=== PATIENT | male | born 1945 | race African-American/Black ===

== ENCOUNTER 2022-11-02 08:09 | Outpatient (REF) | payer MEDICAID, SELFPAY ==
[2022-11-02 11:16] LABS: MANUAL DIFF FLAG NO
[2022-11-02 11:40] LABS: Basophils Percent Auto 0.5 % (0-2); Eosinophils Absolute Auto 0.2 X10*3/uL (0.0-0.4); Hematocrit 40.1 % (42.0-52.0); Hemoglobin 12.9 g/dl (14.0-18.0); Imm Gran Abs Auto 0.02 X10*3/uL (0.00-0.03); Imm Gran Pct Auto 0.4 % (0.0-0.4); Lymphocytes Absolute Auto 2.2 X10*3/uL (1.2-4.9); Lymphocytes Percent Auto 39.6 % (20-40); Mean Corpuscular HGB Conc 32.2 g/dl (31.0-36.0); Mean Corpuscular Hemoglobin 30.2 pg (27.0-33.0); Mean Corpuscular Volume 93.9 fL (80.0-98.0); Mean Platelet Volume 12.1 fL (9.4-12.4); Monocytes Absolute Auto 0.5 X10*3/uL (0.1-1.2); Neutrophils Absolute Auto 2.7 x10*3/uL (2.0-8.3); Neutrophils Percent Auto 48.5 % (45-73); Platelet Count 223 X10*3/uL (160-400); Red Blood Count 4.27 X10*6/uL (4.60-5.80); Red Cell Distribution Width 12.3 % (11.0-16.0); White Blood Count 5.6 X10*3/uL (4.8-10.8)
[2022-11-02 12:17] LABS: Alanine Aminotransferase 9 U/L (0-40); Alkaline Phosphatase 83 U/L (39-117); Anion Gap 11 (12-20); Aspartate Amino Transferase 17 U/L (5-37); Bilirubin Total 0.7 mg/dL (0.0-1.0); Blood Urea Nitrogen 13 mg/dL (9-16); Calcium 9.3 mg/dL (8.4-10.2); Carbon Dioxide 28 mmol/L (22-29); Chloride 103 mmol/L (96-108); Cholesterol 167 mg/dL; Estimated Glomerular Filt Rate > 60; Glucose Fasting 103 mg/dL (60-99); HDL Cholesterol 44 mg/dL; LDL Cholesterol Calculated 111 mg/dl; Potassium 3.6 mmol/L (3.3-5.1); Sodium 138 mmol/L (135-145); Total Protein 7.8 g/dL (6.5-8.0); Triglycerides 62 mg/dL
[2022-11-02 12:33] LABS: TSH reflex Free T4 4.63 uIU/mL (0.32-4.0)
[2022-11-02 14:18] LABS: Free T4 (Free Thyroxine) 1.02 ng/dL (0.71-1.85)
[2022-11-09 18:23] LABS: PSA, Ultra Sensitive 0.62 ng/mL
== END 2022-11-02 08:10 | disposition home or self-care (01) ==
LOC: HO.WFDLDS 08:09
PROVIDERS: Visit Provider Nurse Practitioner Family
DX: Z00.00 Encounter for general adult medical examination without abnormal findings (principal); I10 Essential (primary) hypertension
CPT/HCPCS: 36415; 80053; 80061; 84153; 84439; 84443; 85025

== ENCOUNTER 2022-11-18 08:12 | Outpatient (REF) | payer MEDICAID, SELFPAY ==
[2022-11-18 11:36] LABS: Immature Retic Fraction 6.5 % (2.3-13.4); Retic HGB Equivalent 35.6 pg (30.0-35.0); Reticulocyte Percent 1.4 % (0.5-1.8); Reticulocytes Absolute 0.058 X10*6/uL (0.026-0.095)
[2022-11-18 12:26] LABS: Glucose Fasting 93 mg/dL (60-99); Iron 100 mcg/dL (45-160); Percent Iron Saturation 36 % (15-50); Total Iron Binding Capacity 279 mcg/dL (228-428); Unsaturated Iron Binding 179 ug/dL
[2022-11-18 12:45] LABS: Ferritin 22 ng/mL (20-250)
[2022-11-18 12:58] LABS: Vitamin B12 263 pg/mL (200-900)
[2022-11-18 14:25] LABS: Free T4 (Free Thyroxine) 0.92 ng/dL (0.71-1.85)
[2022-11-18 14:26] LABS: Appearance Urine Cloudy; Color Urine Yellow; Glucose Urine UA Negative (Negative); Leukocyte Esterase Urine Negative (Negative); Nitrite Urine Negative (Negative); PH 5.5 (5.0-9.0); Specific Gravity - Urine 1.015 (1.005-1.025); Urine Blood Negative (Negative); Urine Ketones Negative (Negative); Urine Protein Negative (Neg-Trace)
[2022-11-20 12:34] LABS: Triiodothyronine T3 Free 3.5 pg/mL (2.3-4.2)
== END 2022-11-18 08:13 | disposition home or self-care (01) ==
LOC: HO.WFDLDS 08:12
PROVIDERS: Visit Provider Nurse Practitioner Family
DX: Z00.00 Encounter for general adult medical examination without abnormal findings (principal); R73.01 Impaired fasting glucose; D64.9 Anemia, unspecified
CPT/HCPCS: 36415; 81003; 82607; 82728; 82746; 82947; 83540; 84439; 84443; 84481; 85045

== ENCOUNTER 2022-12-02 10:32 | Outpatient (AMB) | payer MEDICAID, SELFPAY ==
--- NOTE | 2022-12-02 10:41 | A.OFFPC_ITS ---
Vital Signs 12/02/22 10:42 12/02/22 11:31 Height 5 ft 7 in Weight 165 lb BMI 25.8 BP 152/64 H 160/60 H Blood Pressure Location Lt brachial Rt brachial Position Sitting Sitting Respiration 12 Pulse 106 H Pulse Source Pulse Oximeter Temp 98.1 F Temp Source Temporal Artery Scan Pulse Oximetry (%) 98 Oxygen Delivery Method Room Air Intake Visit Reasons: f/u HTN Intake Note: Patient would like to get like a ASSOCIATE PROFESSOR OF BIOLOGY to help with daily activities at home. Remotely Operated Vehicle Required: Yes Remotely Operated Vehicle Name: Herman (Son) Accompanied by: Son Allergies No Known Allergies Allergy (Verified 12/02/22 11:10) Medication List - Last Reconciled 12/02/22 by Mark Rodriguez CNP amlodipine 10 mg PO DAILY 30 days lisinopril 40 mg PO DAILY 30 days Tobacco use date assessed: 10/21/22 Fall risk assessment: No Falls in past year Last assessed Fall Risk: 12/02/22 Dental Screening Dental Screen Date: 12/02/22 Did you have a dental visit in the last 12 months?: No Did you have a dental problem in the last 6 months where you did not have access to dental care?: No Was dental information given to patient?: Yes HPI HPI Comments History of Present Illness Details 76-year-old Creole speaking male, accompanied by his son, presents for hypertension follow-up. He had the nurse visit follow-up last week; his blood pressure is elevated, amlodipine was increased to 10 mg daily. He notes that he has been taking amlodipine an lisinopril as prescribed. He states that he monitors his blood pressure daily with readings in the 150s/80s-90s. No headache, dizziness, visual disturbances, or chest pain. Interpretation by the patient's son per patient's preference. [facility] Medical History High blood pressure No pertinent family history Prostate troubles Surgical History History of hernia repair Social History Housing: House Patient Tobacco Use Status: Never used Tobacco e-Cigarette/Vaping Use: Never Used service: No Current occupational status: retired Cognitive needs: No Hearing needs: No Vision needs: No Questionnaire Thrive Questionnaire Date Thrive assessed: 12/02/22 I am a: Patient What is your living situation today?: I have a steady place to live Within the past 12 months, did the food you bought not last and you didn't have the money to get more?: Never true Within the past 12 months, did you worry whether your food would run out before you got money to buy more?: Never true Do you have trouble paying for medicines?: No Do you have trouble getting transportation to medical appointments?: No Do you have trouble paying your heating and electricity bill?: No Do you have trouble taking care of your child, family member or friend?: No Do you have trouble with day-to-day activities such as bathing, preparing meals, shopping, managing finances, etc.?: Yes Are you currently unemployed and looking for a job?: No Are you interested in more education?: No Please select the resources that you would like help with: Daily support Currently or been in a relationship where the following occur: no concerns reported LUKASZ-7 AMB Questionnaire LUKASZ-7 Date LUKASZ - 7 assessed: 10/21/22 Source: Developed by Drs. Alex Fung, Luma Gan, Gideon Rolon and colleagues, with an educational elder from [employer]. Review of Systems Const Details: Const Denies chills, Denies fatigue, Denies fever(s), Denies headache(s) and Denies weakness ENT Denies dizziness and Denies headache(s) Card Denies chest pain, Denies lightheadedness, Denies dyspnea and Denies other (Palpitations) Resp Denies cough, Denies dyspnea, Denies wheezing and Denies other ( shortness of breath) GI Denies abdominal pain, Denies melena, Denies hematochezia, Denies change in bowel habits, Denies dyspepsia and Denies nausea Denies hematuria and Denies dysuria Musc Denies abnormal gait, Denies myalgias, Denies arthralgias, Denies numbness and Denies tingling Skin/Breast Denies rash, Denies unusual bruising and Denies wounds Neuro Denies abnormal gait, Denies dizziness, Denies headache(s), Denies memory loss, Denies numbness, Denies Sensory deficit (Neuro), Denies tingling and Denies weakness Psych Denies anxiety and Denies depression Endo Denies fatigue Aller/Immun Denies wheezing Physical exam (Primary Care) Vital Signs: Last Vital Signs Temp 98.1 F 12/02/22 10:42 Pulse 106 H 12/02/22 10:42 Resp 12 12/02/22 10:42 BP 152/64 H 12/02/22 10:42 Pulse Ox 98 12/02/22 10:42 Oxygen Delivery Method Room Air 12/02/22 10:42 BMI result Body Mass Index 25.8 Tobacco/Smoking Status: Tobacco use Status Tobacco use date assessed 10/21/22 12/02/22 10:52 Patient Tobacco Use Status Never used Tobacco 12/02/22 10:52 e-Cigarette/Vaping Use Never Used 12/02/22 10:52 Thrive Assessment: Date of Thrive Assessment Date Thrive assessed 12/02/22 12/02/22 10:52 Currently or been in a relationship where the following occur: no concerns reported Const Other: General: no acute distress and well developed Nutritional Appearance: well nourished rientation/consciousness: patient oriented x3 HENMT Head: Yes normocephalic and Yes atraumatic Eyes General: appearance normal, both eyes and all related structures Pupils: Equal, round and reactive pupils present EOM: EOMs intact bilaterally Resp Effort & Inspection: normal respiratory effort Auscultation: clear to auscultation bilaterally Cardio Rate: regular rate Rhythm: regular rhythm Heart sounds: S1 normal heart sound present, S2 normal heart sound present, no gallops, no murmurs and no rubs GI Palpation (GI): No Abdominal aortic bruit present, Soft to palpation, nontender, No hepatosplenomegaly present and No Rebound tenderness present Auscultation: normal bowel sounds General: Yes no CVA tenderness Back/Spine/Pelvis Back: no CVA tenderness Cervical Spine: cervical ROM normal and No Cervical spine tenderness Thoracic/Lumbar Spine: thoraco-lumbar ROM normal, No pain with thoraco-lumbar ROM, No thoracic spinal tenderness and No lumbar spinal tenderness Extrem General: Yes normal to inspection, No edema and No calf tenderness Skin General: warm and dry. Normal skin color. Normal skin turgor Lesions: no lesions Rashes: no rashes Trauma: no lacerations or abrasions Wounds: no wounds Nails: normal Neuro General: patient oriented x3, gait normal and no focal neuro deficit Cranial nerves: Yes Equal, round and reactive pupils present Cognition (Neuro): normal cognition Gait exam (Neuro): Normal gait present Sensory Exam: No Sensory deficit (Neuro) Psych Affect: normal affect Assessment and Plan Assessment & Plan (1) High blood pressure: Code(s): I10 - Essential (primary) hypertension Plan: Resting BP is elevated, 160/60, above goal of less than 140/90 Will add metoprolol to his treatment regimen. Take as prescribed Continue to take amlodipine and lisinopril as prescribed Low-sodium diet encouraged Referred to Cardiology Follow-up for a nurse visit in 1 week for blood pressure check Return in 2 weeks or sooner with symptoms or concerns Verbalized understanding and agreed with treatment plan. Orders: Referrals Cardiology Referral I10 - Essential (primary) hypertension Medications: New metoprolol tartrate 50 mg PO DAILY 30 tabs 3RF 30 days Coding Level of Care Code Est Pt Level 3 (12092) Diagnoses High blood pressure I10 Time Spent (min) 25
[2022-12-02 10:42] VITALS: BP 152/64; PULSE 106; RESP 12; TEMP 36.7; O2SAT 98; BMI 25.8
[2022-12-02 11:31] VITALS: BP 160/60
== END 2022-12-02 11:36 | disposition home or self-care (01) ==
PROVIDERS: PCP Nurse Practitioner Family; Visit Provider Nurse Practitioner Family
DX: I10 Essential (primary) hypertension (principal)
CPT/HCPCS: 99213

== ENCOUNTER 2023-01-06 11:34 | Outpatient (AMB) | payer MEDICAID, SELFPAY ==
[2023-01-06 11:43] VITALS: BP 160/70; PULSE 78; RESP 12; TEMP 36.5; O2SAT 98; BMI 25.8
--- NOTE | 2023-01-06 11:43 | A.OFFPC_ITS ---
Vital Signs 01/06/23 11:43 01/06/23 12:12 Height 5 ft 7 in Weight 165 lb BMI 25.8 BP 160/70 H 152/70 H Blood Pressure Location Lt brachial Rt brachial Position Sitting Sitting Respiration 12 Pulse 78 Pulse Source Pulse Oximeter Temp 97.7 F Temp Source Temporal Artery Scan Pulse Oximetry (%) 98 Oxygen Delivery Method Room Air Intake Visit Reasons: BP Check Insulation Board Calender Operator Required: Yes Insulation Board Calender Operator Name: Patient's son is with him Accompanied by: Son Allergies No Known Allergies Allergy (Verified 01/06/23 12:06) Medication List - Last Reconciled 01/06/23 by Mark Rodriguez CNP amlodipine 10 mg PO DAILY 30 days lisinopril 40 mg PO DAILY 30 days metoprolol tartrate 50 mg PO BID 30 days Tobacco use date assessed: 10/21/22 Fall risk assessment: No Falls in past year Last assessed Fall Risk: 01/06/23 Dental Screening Dental Screen Date: 01/06/23 Did you have a dental visit in the last 12 months?: No Did you have a dental problem in the last 6 months where you did not have access to dental care?: No Was dental information given to patient?: Yes HPI HPI Comments History of Present Illness Details 76-year-old Creole speaking male, accompanied by his son, presents for hypertension follow-up. He had the nurse visit follow-up last week; his blood pressure was elevated but improved to 150/62, metoprolol was was added to his treatment regimen. He notes that he has been taking amlodipine, lisinopril, and Metoprolol as prescribed.? He states that he monitors his blood pressure daily before taking his medications. His blood pressure average between 120s-140/60s-70s. He notes that his home BP this morning was 160/80. No headache, dizziness, visual disturbances, or chest pain. He states he has cardiology appointment scheduled next month. Interpretation by the patient's son per patient's preference.? [facility] Medical History High blood pressure No pertinent family history Prostate troubles Surgical History History of hernia repair Social History Housing: House Patient Tobacco Use Status: Never used Tobacco e-Cigarette/Vaping Use: Never Used service: No Current occupational status: retired Cognitive needs: No Hearing needs: No Vision needs: No Questionnaire Thrive Questionnaire Date Thrive assessed: 12/02/22 LUKASZ-7 AMB Questionnaire LUKASZ-7 Date LUKASZ - 7 assessed: 10/21/22 Source: Developed by Drs. Alex Fugn, Luma Gan, Gideon Rolon and colleagues, with an educational elder from [employer]. Review of Systems Const Details: Const Denies chills, Denies fatigue, Denies fever(s), Denies headache(s) and Denies weakness ENT Denies dizziness and Denies headache(s) Card Denies chest pain, Denies lightheadedness, Denies dyspnea and Denies other (Palpitations) Resp Denies cough, Denies dyspnea, Denies wheezing and Denies other ( shortness of breath) GI Denies abdominal pain, Denies melena, Denies hematochezia, Denies change in bowel habits, Denies dyspepsia and Denies nausea Denies hematuria and Denies dysuria Musc Denies abnormal gait, Denies myalgias, Denies arthralgias, Denies numbness and Denies tingling Skin/Breast Denies rash, Denies unusual bruising and Denies wounds Neuro Denies abnormal gait, Denies dizziness, Denies headache(s), Denies memory loss, Denies numbness, Denies Sensory deficit (Neuro), Denies tingling and Denies weakness Psych Denies anxiety, Denies depression, Denies memory loss Endo Denies cold intolerance, Denies fatigue, Denies heat intolerance, Denies polydipsia and Denies polyuria Aller/Immun Denies wheezing Physical exam (Primary Care) Vital Signs: Last Vital Signs Temp 97.7 F 01/06/23 11:43 Pulse 78 01/06/23 11:43 Resp 12 01/06/23 11:43 BP 160/70 H 01/06/23 11:43 Pulse Ox 98 01/06/23 11:43 Oxygen Delivery Method Room Air 01/06/23 11:43 BMI result Body Mass Index 25.8 Tobacco/Smoking Status: Tobacco use Status Tobacco use date assessed 10/21/22 01/06/23 11:44 Patient Tobacco Use Status Never used Tobacco 01/06/23 11:44 e-Cigarette/Vaping Use Never Used 01/06/23 11:44 Thrive Assessment: Date of Thrive Assessment Date Thrive assessed 12/02/22 01/06/23 11:44 Const Other: General: no acute distress and well developed Nutritional Appearance: well nourished Orientation/consciousness: patient oriented x3 HENMT Head: Yes normocephalic and Yes atraumatic Eyes General: appearance normal, both eyes and all related structures Pupils: Equal, round and reactive pupils present EOM: EOMs intact bilaterally Resp Effort & Inspection: normal respiratory effort Auscultation: clear to auscultation bilaterally Cardio Rate: regular rate Rhythm: regular rhythm Heart sounds: S1 normal heart sound present, S2 normal heart sound present, no gallops, no murmurs and no rubs GI Palpation (GI): No Abdominal aortic bruit present, Soft to palpation, nontender, No hepatosplenomegaly present and No Rebound tenderness present Auscultation: normal bowel sounds General: Yes no CVA tenderness Back/Spine/Pelvis Back: no CVA tenderness Cervical Spine: cervical ROM normal and No Cervical spine tenderness Thoracic/Lumbar Spine: thoraco-lumbar ROM normal, No pain with thoraco-lumbar R OM, No thoracic spinal tenderness and No lumbar spinal tenderness Extrem General: Yes normal to inspection, No edema and No calf tenderness Skin General: warm and dry. Normal skin color. Normal skin turgor Lesions: no lesions Rashes: no rashes Trauma: no lacerations or abrasions Wounds: no wounds Nails: normal Neuro General: patient oriented x3, gait normal and no focal neuro deficit Cranial nerves: Yes Equal, round and reactive pupils present Cognition (Neuro): normal cognition Gait exam (Neuro): Normal gait present Sensory Exam: No Sensory deficit (Neuro) Psych Appearance: grossly normal Affect: normal affect Attitude: cooperative Thought process: Normal thought process present Assessment and Plan Assessment & Plan (1) High blood pressure: Code(s): I10 - Essential (primary) hypertension Plan: Resting blood pressure is 152/70, Above goal of above goal of less than 140/90 Metoprolol increased to 100 mg twice daily. Take as prescribed Continue to take amlodipine and lisinopril as prescribed Low sodium diet encouraged Continue to monitor BP daily and report BP below 100/60 and HR below 60 with or without dizziness/lightheadedness Return for a nurse visit for BP check in 1 week Follow up with PCP in 1 month Follow up with cardiology as planned Return sooner with symptoms or concerns Verbalized understanding and agreed with the treatment plan. Medications: New metoprolol tartrate 100 mg PO BID 30 days 60 tabs 3RF Discontinued metoprolol tartrate Discontinued Reason: Doctor's Order 50 mg PO BID 30 days 60 tabs 3RF Coding Level of Care Code Est Pt Level 3 (91675) Diagnoses High blood pressure I10
[2023-01-06 12:12] VITALS: BP 152/70
== END 2023-01-06 12:21 | disposition home or self-care (01) ==
PROVIDERS: PCP Nurse Practitioner Family; Visit Provider Nurse Practitioner Family
DX: I10 Essential (primary) hypertension (principal)
CPT/HCPCS: 99213

== ENCOUNTER 2023-01-13 10:29 | Outpatient (REF) | payer MEDICAID, SELFPAY ==
[2023-01-20 16:28] LABS: Aldosterone/Renin Ratio 85.7 Ratio (0.9-28.9); Plasma Renin Activity 0.07 ng/mL/h (0.25-5.82)
== END 2023-01-13 10:30 | disposition home or self-care (01) ==
LOC: HO.WFDLDS 10:29
PROVIDERS: Visit Provider Nurse Practitioner Family
DX: I10 Essential (primary) hypertension (principal)
CPT/HCPCS: 36415; 82088

== ENCOUNTER 2023-01-27 15:09 | Outpatient (REF) | payer MEDICAID, SELFPAY ==
[2023-01-28 12:26] LABS: Appearance Urine Clear; Color Urine Yellow; Glucose Urine UA Negative (Negative); Leukocyte Esterase Urine Negative (Negative); Nitrite Urine Negative (Negative); PH 6.5 (5.0-9.0); Specific Gravity - Urine 1.015 (1.005-1.025); Urine Blood Negative (Negative); Urine Ketones Negative (Negative); Urine Protein Negative (Neg-Trace)
[2023-01-28 13:05] LABS: Creatinine Urine 125.41 mg/dL; Microalbum/Creatinine Ratio Ur 3.9 ug/mg cr (<30)
== END 2023-01-27 15:10 | disposition home or self-care (01) ==
LOC: HO.LAB 15:09
PROVIDERS: Visit Provider Nurse Practitioner Family
DX: I10 Essential (primary) hypertension (principal)
CPT/HCPCS: 81003; 82043; 82570

== ENCOUNTER 2023-02-03 11:24 | Outpatient (AMB) | payer MEDICAID, SELFPAY ==
--- NOTE | 2023-02-03 11:28 | A.OFFPC_ITS ---
Vital Signs 02/03/23 11:29 02/03/23 12:08 Height 5 ft 7 in Weight 165 lb 6 oz BMI 25.9 BP 160/74 H 140/60 H Blood Pressure Location Rt brachial Rt brachial Position Sitting Sitting Respiration 12 Pulse 72 Pulse Source Pulse Oximeter Temp 97.1 F Temp Source Temporal Artery Scan Pulse Oximetry (%) 99 Oxygen Delivery Method Room Air Intake Visit Reasons: 1 mos f/u HTN Facility Examiner Required: Yes Facility Examiner Name: His Son Accompanied by: Son Allergies No Known Allergies Allergy (Verified 02/03/23 11:41) Medication List - Last Reconciled 02/03/23 by Mark Rodriguez CNP amlodipine 10 mg PO DAILY 30 days lisinopril 40 mg PO DAILY 30 days metoprolol tartrate 100 mg PO BID 30 days Tobacco use date assessed: 10/21/22 Fall risk assessment: No Falls in past year Last assessed Fall Risk: 02/03/23 Dental Screening Dental Screen Date: 02/03/23 Did you have a dental visit in the last 12 months?: No Did you have a dental problem in the last 6 months where you did not have access to dental care?: No Was dental information given to patient?: Yes HPI HPI Comments History of Present Illness Details 77-year-old Creole speaking male, accomp anied by his son, presents for hypertension follow-up He notes that he has been taking amlodipine, lisinopril, and Metoprolol as prescribed His son states that his home blood pressure readings are usually in the 140s/60s He states he has cardiology appointment and renal ultrasound scheduled for early next month No acute symptoms at this time. [facility] Medical History No pertinent family history Prostate troubles High blood pressure Surgical History History of hernia repair Social History Housing: House Patient Tobacco Use Status: Never used Tobacco e-Cigarette/Vaping Use: Never Used service: No Current occupational status: retired Cognitive needs: No Hearing needs: No Vision needs: No Questionnaire Thrive Questionnaire Date Thrive assessed: 12/02/22 LUKASZ-7 AMB Questionnaire LUKASZ-7 Date LUKASZ - 7 assessed: 10/21/22 Source: Developed by Drs. Alex Fung, Luma Gan, Gideon Rolon and colleagues, with an educational elder from [employer]. Review of Systems Const Details: Const Denies chills, Denies fatigue, Denies fever(s), Denies headache(s) and Denies weakness ENT Denies dizziness and Denies headache(s) Card Denies chest pain, Denies lightheadedness, Denies dyspnea and Denies other (Palpitations) Resp Denies cough, Denies dyspnea, Denies wheezing and Denies other ( shortness of breath) GI Denies abdominal pain, Denies melena, Denies hematochezia, Denies change in bowel habits, Denies dyspepsia and Denies nausea Denies hematuria and Denies dysuria Musc Denies abnormal gait, Denies myalgias, Denies arthralgias, Denies numbness and Denies tingling Skin/Breast Denies rash, Denies unusual bruising and Denies wounds Neuro Denies abnormal gait, Denies dizziness, Denies headache(s), Denies memory loss, Denies numbness, Denies Sensory deficit (Neuro), Denies tingling and Denies weakness Psych Denies anxiety, Denies depression, Denies memory loss Endo Denies cold intolerance, Denies fatigue, Denies heat intolerance, Denies polydipsia and Denies polyuria Aller/Immun Denies wheezing Physical exam (Primary Care) Vital Signs: Last Vital Signs Temp 97.1 F 02/03/23 11:29 Pulse 72 02/03/23 11:29 Resp 12 02/03/23 11:29 BP 160/74 H 02/03/23 11:29 Pulse Ox 99 02/03/23 11:29 Oxygen Delivery Method Room Air 02/03/23 11:29 BMI result Body Mass Index 25.9 Tobacco/Smoking Status: Tobacco use Status Tobacco use date assessed 10/21/22 02/03/23 11:33 Patient Tobacco Use Status Never used Tobacco 02/03/23 11:33 e-Cigarette/Vaping Use Never Used 02/03/23 11:33 Thrive Assessment: Date of Thrive Assessment Date Thrive assessed 12/02/22 02/03/23 11:33 Const Other: General: no acute distress and well developed Nutritional Appearance: well nourished Orientation/consciousness: patient oriented x3 [facility] Head: Yes normocephalic and Yes atraumatic Eyes General: appearance normal, both eyes and all related structures Pupils: Equal, round and reactive pupils present EOM: EOMs intact bilaterally Resp Effort & Inspection: normal respiratory effort Auscultation: clear to auscultation bilaterally Cardio Rate: regular rate Rhythm: regular rhythm Heart sounds: S1 normal heart sound present, S2 normal heart sound present, no gallops, no murmurs and no rubs GI Palpation (GI): No Abdominal aortic bruit present, Soft to palpation, nontender, No hepatosplenomegaly present and No Rebound tenderness present Auscultation: normal bowel sounds General: Yes no CVA tenderness Back/Spine/Pelvis Back: no CVA tenderness Cervical Spine: cervical ROM normal and No Cervical spine tenderness Thoracic/Lumbar Spine: thoraco-lumbar ROM normal, No pain with thoraco-lumbar ROM, No thoracic spinal tenderness and No lumbar spinal tenderness Extrem General: Yes normal to inspection, No edema and No calf tenderness Skin General: warm and dry. Normal skin color. Normal skin turgor Lesions: no lesions Rashes: no rashes Trauma: no lacerations or abrasions Wounds: no wounds Nails: normal Neuro General: patient oriented x3, gait normal and no focal neuro deficit Cranial nerves: Yes Equal, round and reactive pupils present Cognition (Neuro): normal cognition Gait exam (Neuro): Normal gait present Sensory Exam: No Sensory deficit (Neuro) Psych Appearance: grossly normal Affect: normal affect Attitude: cooperative Thought process: Normal thought process present Assessment and Plan Assessment & Plan (1) High blood pressure: Code(s): I10 - Essential (primary) hypertension Qualifiers: Hypertension type: primary hypertension Qualified Code(s): I10 - Essential (primary) hypertension Plan: His initial blood pressure is 160/74. His resting blood pressure is 140/60, slightly above goal of less than 140/80 Recent renin level is significantly low, 0.7 and aldosterone/renin ratio is significantly elevated, 85.79; this indicates primary aldosteronism and likely why his blood pressure is uncontrolled with current treatment regimen. Lisinopril discontinued Lisinopril-hydrochlorothiazide ordered; advised to take with metoprolol and amlodipine as prescribed Low-sodium diet encouraged Referred to Nephrology Encouraged to follow-up for renal ultrasound as scheduled Follow-up with cardiology as planned Return in 1 week for a nurse visit for blood pressure check Follow-up in 2 weeks or return sooner with symptoms or concerns Verbalized understanding and agreed with treatment plan Interpretation by the patient's son per patient's preference.? (2) Primary aldosteronism: Code(s): E26.09 - Other primary hyperaldosteronism Plan: As above Orders: Orders US renal doppler Today I10 - Essential (primary) hypertension Referrals Nephrology Referral E26.09 - Other primary hyperaldosteronism, I10 - Essential (primary) hypertension Medications: New lisinopril-hydrochlorothiazide 20-25 mg 1 tab PO DAILY 30 days 30 tabs 1RF Discontinued lisinopril Discontinued Reason: Doctor's Order 40 mg PO DAILY 30 days 30 tabs 3RF Coding Level of Care Code Est Pt Level 3 (61381) Diagnoses Primary hypertension I10 Hypertension type: primary hypertension Primary aldosteronism E26.09
[2023-02-03 11:29] VITALS: BP 160/74; PULSE 72; RESP 12; TEMP 36.2; O2SAT 99; BMI 25.9
[2023-02-03 12:08] VITALS: BP 140/60
== END 2023-02-03 12:18 | disposition home or self-care (01) ==
PROVIDERS: PCP Nurse Practitioner Family; Visit Provider Nurse Practitioner Family
DX: I10 Essential (primary) hypertension (principal); E26.09 Other primary hyperaldosteronism
CPT/HCPCS: 99213

== ENCOUNTER 2023-02-09 14:46 | Outpatient (AMB) | payer MEDICAID, SELFPAY ==
[2023-02-09 14:50] VITALS: BP 140/72; PULSE 82; BMI 25.9
--- NOTE | 2023-02-09 14:50 | MHC.OFFVIS ---
Intake Vital Signs 02/09/23 14:50 Height 5 ft 7 in Weight 165 lb 5.547 oz BMI 25.9 BP 140/72 H Blood Pressure Location Lt brachial Position Sitting Pulse 82 Intake Visit Reasons: [employer]PER[employer]/JYOTI/HTN Intake Note: New patient dx HTN feeling good Tapper Operator Required: No Tapper Operator Name: Wally baptiste Dialysis Social Worker: Dialysis Social Worker Present Accompanied by: Daughter Allergies No Known Allergies Allergy (Verified 02/03/23 11:41) Medication List - Last Reconciled 02/09/23 by Chris Vargas MD amlodipine 10 mg PO DAILY 30 days lisinopril-hydrochlorothiazide 20-25 mg 1 tab PO DAILY 30 days metoprolol tartrate 100 mg PO BID 30 days HPI HPI Comments History of Present Illness Details Nery was referred here for management for high blood pressure. History was obtained with help of a certified fountain jerk over the phone. Patient was accompanied by his daughter who provided most of the history. For about 5 years patient has elevated blood pressure currently on multiple medical status including metoprolol, amlodipine and lisinopril hydrochlorothiazide. Despite that patient blood pressure after remains elevated as per the daughter. Patient's blood pressures sometimes up to systolic 160 but generally remains above systolic 140. Blood pressures been monitor at home. They have cut down the salt in the diet. Patient has no other cardiac symptoms. Denies any exertional chest pain or shortness of breath. No orthopnea, PND, leg PFSH Medical History No pertinent family history Prostate troubles High blood pressure Surgical History History of hernia repair Social History Housing: House Patient Tobacco Use Status: Never used Tobacco e-Cigarette/Vaping Use: Never Used service: No Current occupational status: retired Cognitive needs: No Hearing needs: No Vision needs: No Review of Systems Const Denies chills, Denies daytime sleepiness, Denies fatigue, Denies fever(s), Denies frequent falls, Denies poor appetite, Denies snoring, Denies stops breathing during sleep, Denies weakness, Denies weight gain and Denies weight loss Eyes Denies loss of vision ENT Denies dizziness and Denies hearing loss Card Denies chest pain, Denies claudication, Denies leg edema, Denies lightheadedness, Denies palpitations, Denies dyspnea, Denies dyspnea on exertion and Denies orthopnea Resp Denies cough, Denies excessive phlegm production, Denies dyspnea, Denies dyspnea on exertion, Denies snoring and Denies wheezing GI Denies abdominal pain, Denies hematochezia, Denies change in bowel habits, Denies nausea and Denies vomiting Denies dysuria and Denies urinary frequency Musc Denies arthralgias, Denies muscle weakness, Denies numbness and Denies other (frequent falls) Skin/Breast Denies nail changes and Denies rash Neuro Denies Abnormal speech present, Denies dizziness, Denies frequent falls, Denies loss of vision, Denies memory loss, Denies numbness and Denies weakness Psych Denies depression and Denies memory loss Endo Denies fatigue and Denies palpitations Alex/Lymph Reports easy bruising and Reports other (anemia) Aller/Immun Denies wheezing Physical Exam Vital Signs: Last Vital Signs Pulse 82 02/09/23 14:50 BP 140/72 H 02/09/23 14:50 BMI result Body Mass Index 25.9 Const General: cooperative, comfortable, no acute distress, well developed, alert, awake and Physically active Nutritional Appearance: average body habitus and well nourished Orientation/consciousness: patient oriented x3 Limitations: no limitations HEENT Head: Yes normocephalic and Yes atraumatic Neck Neck: Yes trachea midline, Yes supple and Yes no JVD Resp Effort & Inspection: normal respiratory effort Auscultation: clear to auscultation bilaterally Cardio Jugular venous distension: no JVD Palpation: normal PMI Rate: regular rate Rhythm: regular rhythm Heart sounds: S1 normal heart sound present, S2 normal heart sound present, no click, no gallops, no murmurs and no rubs GI Auscultation: normal bowel sounds Skin General skin exam: no rashes or lesions noted Neuro General: patient oriented x3 and no focal motor deficits Speech: No Abnormal speech present Extrem General: Yes no clubbing, cyanosis or edema Psych Appearance: grossly normal Office Procedures EKG Details: EKG shows normal sinus rhythm with T-wave changes in inferior lead most likely 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 Noted to have low prior is not renin activity which can be seen in patients with salt sensitive hypertension and/or high salt intake in her diet along with primary hyperaldosteronism. Patient also has elevated aldosterone to renin ratio which could be seen in patients calcium channel blockers, renal artery stenosis. Would consider doing renal duplex. Also consider referring to endocrinology. However at this point time I thing his blood pressure will be best control with aldosterone antagonist. Have therefore taken the liberty to switch is lisinopril hydrochlorothiazide to Aldactone-hydrochlorothiazide therapy. Advised to monitor blood pressure at home maintain a log. Low-salt diet was discussed. Follow-up BMP in 1 week to check potassium levels. Also obtain echocardiogram to assess for end-organ damage. Will follow up in the clinic in 4 weeks time, sooner p.r.n.. Thank you for allowing me to partake in his care Orders: Orders CA echo transthoracic complete Today I10 - Essential (primary) hypertension Basic Metabolic Panel 1 Week I10 - Essential (primary) hypertension Medications: New spironolacton-hydrochlorothiaz 25-25 mg 1 tab PO DAILY 30 tabs 2RF Discontinued lisinopril-hydrochlorothiazide 20-25 mg Discontinued Reason: Doctor's Order 1 tab PO DAILY 30 days 30 tabs 1RF Coding Level of Care Code New Pt Level 3 (51500) Diagnoses Primary hypertension I10 Hypertension type: primary hypertension CPT Codes EKG - CPT: 85774-[id number], Complete ([id number])
== END 2023-02-09 15:24 | disposition home or self-care (01) ==
PROVIDERS: PCP Nurse Practitioner Family; Visit Provider Internal Medicine Cardiovascular Disease
DX: I10 Essential (primary) hypertension (principal)
CPT/HCPCS: 93010; 99203

== ENCOUNTER → 2023-02-09 14:46 | Outpatient (BNVA) | payer MEDICAID, SELFPAY | PROVIDERS: PCP Nurse Practitioner Family; Visit Provider Internal Medicine Cardiovascular Disease | DX: I10 Essential (primary) hypertension (principal) | CPT/HCPCS: 93005; 99202 ==

== ENCOUNTER → 2023-02-17 09:43 | Outpatient (REF) | payer MEDICAID, SELFPAY ==
--- NOTE | 2023-02-17 09:48 | CA_ITS ---
Transthoracic Echocardiogram Patient (Last, First, Middle): Nery Alexander, Gender: Male Date of : 1945 Age: 77 Procedure Date: 02/17/2023 Procedure Type: Transthoracic Echocardiogram Location: OP Height: 170.18 cm Weight: 57.61 kg BSA: 1.67 m2 Heart Rate: bpm BP: 170 / 72 mmHg Form Block Maker: WENDY Referring MD: Mark Rodriguez CNP Symptoms: I10 - Essential (primary) hypertension Study Quality: Fair ECG Rhythm: Sinus Conclusions: - The left ventricular systolic function is hyperdynamic. The visually estimated ejection fraction is >70%. - No obvious valvular pathology seen on this study. Findings Left Ventricle Normal left ventricular cavity size. There is normal left ventricular wall thickness. The left ventricular systolic function is hyperdynamic. The visually estimated ejection fraction is >70%. There is no evidence of regional wall motion abnormalities. Evidence suggests grade I (mild) diastolic dysfunction. Right Ventricle Normal right ventricular cavity size and systolic function. Atria Both atria are normal in size. Aortic Valve There is a normal trileaflet aortic valve. There is no aortic valve stenosis. There is trace (trivial) aortic valve regurgitation. Mitral Valve The mitral valve appears normal. There is no mitral valve regurgitation. There is no mitral valve stenosis. Pulmonic Valve There is trace pulmonic valve regurgitation. Tricuspid Valve Normal tricuspid valve structure. There is trace tricuspid valve regurgitation. There is no evidence of pulmonary hypertension. Great Vessels The asc aorta is normal in size. Venous The inferior vena cava is normal in size and collapses greater than 50% with inspiration. Pericardium/Pleural There is no evidence of pericardial effusion. Prior Study Comparison No prior study available for comparison. Recommendations, Care & Conclusions No obvious valvular pathology seen on this study. Measurements 2D Linear Measurements IVSd: 0.81 0.6-0.9/0.6-1.0 cm LVIDd: 5.12 3.9-5.3/4.2-5.9 cm LVIDd Index: 3.07 2.4-3.2/2.2-3.1 cm/m2 LVIDs: 2.39 2.0-3.6 cm LVPWd: 1.12 0.7-1.1 cm LA Diam: 3.70 2.7-3.8/3.0-4.0 cm LAIDs Index: 2.22 1.5-2.3 cm/m2 LV Mass: 224.68 67-162/88-224 g LV Mass Index: 134.54 43-95/49-115 g/m2 LVOT Diam: 2.00 3.0+(-)1.3 cm 2D Systolic Function EF 4C: 76.50 >55% EF 2C: 74.80 >55% EF BiP: 74.20 >55% Mitral Valve MV Pk E: 0.61 MV PK A: 1.00 MV Decel Time: 209.00 E/A: 0.60 E'Lateral: 3.59 E'Medial: 5.22 E/E' Med: 11.70 E/E' Lat: 17.00 PHT: 61.00 MVA PHT: 3.61 Decel [place]: 2.94 Aortic Valve AoV Pk John: 1.49 AoV Mn John: 1.10 AoV VTI: 0.25 AoV Pk Grad: 9.00 Aov Mn Grad: 5.00 FABIAN Cont.VTI: 2.77 LVOT LVOT Pk John: 1.19 LVOT Mn John: 0.77 LVOT VTI: 0.22 LVOT Pk Grad: 6.00 LVOT Mn Grad: 3.00 LVOT Diam: 2.00 LVOT Area: 3.14 Diastolic Function MV Pk E: 0.61 MV Pk A: 1.00 E/A: 0.60 E'Medial: 5.22 E/E' Med: 11.70 E' Laterial: 3.59 E/E' Lat: 17.00 Right Ventricle TAPSE (mm): 29.60 TVS' John: 21.60 Tricuspid Valve TR Pk John: 2.45 TR Pk Grad: 24.00 RA Press: 3.00 RVSP: 27.00 Great Vessels Aorta Sinus of Valsalva: 3.58 2.0-3.[address] [place]: 2.49 1.7-3.4 cm Ao Asc: 3.50 2.1-3.4 cm Updated in Other Vendor System with Status of Final Jhonatan Thornton MD electronically signed on 02/17/2023 3:25:48 PM with status of Final
== END ==
LOC: HO.CARD 09:43
PROVIDERS: Referring Provider Internal Medicine Cardiovascular Disease; Visit Provider Nurse Practitioner Family
DX: I10 Essential (primary) hypertension (principal)
CPT/HCPCS: 93306

== ENCOUNTER → 2023-02-17 09:48 | Outpatient (BNV) | payer MEDICAID, SELFPAY | PROVIDERS: Referring Provider Internal Medicine Cardiovascular Disease; Visit Provider Internal Medicine | DX: I51.9 Heart disease, unspecified (principal) | CPT/HCPCS: 93306 ==

== ENCOUNTER 2023-03-23 15:40 | Outpatient (AMB) | payer MEDICAID, SELFPAY ==
[2023-03-23 15:48] VITALS: BP 142/70; PULSE 95; O2SAT 97; BMI 26.0
--- NOTE | 2023-03-23 15:48 | HO.NEPHOV_ITS ---
HPI HPI Comments History of Present Illness Details This is a pleasant 77-year-old man from [facility] who was accompanied by son today for evaluation of hypertension. His son was able to translate 5-year-old for S. To summarize the patient has had hypertension for several years. It has been difficult to control. He was on amlodipine and enalapril. In January he was found to have an elevated PA/PRA of 85.7 and the aldosterone level was 6. Plasma renin activity was suppressed at 0.07. It is unclear what medications he was on at that time. He was probably on an LILLIANA-inhibitor according to his son. In February than left close discontinued and he was started on Aldactazide . Since then the blood pressure seems to be better controlled. He is here for further evaluation of possible primary hyperaldosteronism. PENDING SALE TO [facility] Medical History No pertinent family history Prostate troubles High blood pressure Surgical History History of hernia repair Social History Housing: House Patient Tobacco Use Status: Never used Tobacco e-Cigarette/Vaping Use: Never Used service: No Current occupational status: retired Cognitive needs: No Hearing needs: No Vision needs: No Vital Signs 03/23/23 15:48 Height 5 ft 7 in Weight 166 lb BMI 26.0 BP 142/70 H Blood Pressure Location Lt brachial Position Sitting Pulse 95 Pulse Source Pulse Oximeter Pulse Oximetry (%) 97 Oxygen Delivery Method Room Air Physical Exam Vital Signs: Last Vital Signs Pulse 95 03/23/23 15:48 BP 142/70 H 03/23/23 15:48 Pulse Ox 97 03/23/23 15:48 Oxygen Delivery Method Room Air 03/23/23 15:48 BMI result Body Mass Index 26.0 Const General: comfortable Nutritional Appearance: well nourished Orientation/consciousness: patient oriented x3 HEENT Head: No normal to inspection Mouth: moist mucous membranes Neck Neck: Yes supple and Yes no JVD Resp Auscultation: clear to auscultation bilaterally, no rales and rub present Cardio Jugular venous distension: no JVD Palpation: no palpable S3 and no palpable S4 Heart sounds: no rubs GI Palpation (GI): Soft to palpation and nontender Percussion: No Fluid wave present General: Yes no CVA tenderness Back/Spine/Pelvis Back: no CVA tenderness Skin General skin exam: no rashes or lesions noted Neuro General: patient oriented x3 Extrem General: Yes no pedal edema and No clubbing Results Reviewed Results Reviewed: In November potassium was 3.6. No alkalosis. Total CO2 was 28. Plasma renin activity of 0.07 with aldosterone renin ratio of 85.7 Assessment & Plan Assessment & Plan (1) Hypotension: Code(s): I95.9 - Hypotension, unspecified Plan Elderly man with longstanding complicated history of hypertension has been referred for evaluation of hypertension and to rule out hyperaldosteronism. Plasma aldosterone level was not elevated but the plasma aldosterone/renin ratio was elevated at 85.7. It is unclear as to what medication he was on at that time. He had borderline hypokalemia. But no alkalosis. I have initiated workup for possible hyperaldosteronism. Unlikely to be renal artery stenosis with a suppressed renin level. I will stop Aldactazide and metoprolol for 2 weeks. We will obtain plasma renin activity and serum aldosterone level along with serum electrolytes potassium and bicarb levels after 2 weeks. In the meantime I will replace Aldactazide with clonidine 0.1 mg b.i.d.. He will continue with amlodipine 10 mg q.d. for now. Once the blood test is completed I have asked him to discontinue clonidine and go back on Aldactazide and metoprolol. He will return to office in the next 3 weeks and further workup will be determined by the outcome of the above baseline investigations. I have explained the treatment plan to his son who works as a OR nurse in [employer] Orders: Orders Aldosterone 2 Weeks E26.09 - Other primary hyperaldosteronism Aldost/Renin 2 Weeks E26.09 - Other primary hyperaldosteronism Renin 2 Weeks E26.09 - Other primary hyperaldosteronism Electrolytes 2 Weeks E26.09 - Other primary hyperaldosteronism Blood Urea Nitrogen 2 Weeks E26.09 - Other primary hyperaldosteronism Creatinine 2 Weeks E26.09 - Other primary hyperaldosteronism Calcium 2 Weeks E26.09 - Other primary hyperaldosteronism Medications: New clonidine HCl 0.1 mg PO BID 30 tabs 1RF On Hold metoprolol tartrate Hold Comment: Doctor's Order 100 mg PO BID 30 days 60 tabs 3RF spironolacton-hydrochlorothiaz 25-25 mg Hold Comment: Doctor's Order 1 tab PO DAILY 30 tabs 2RF Coding Level of Care Code New Pt Level 5 (02534) Diagnoses Hypotension I95.9
== END 2023-03-23 16:15 | disposition home or self-care (01) ==
PROVIDERS: Visit Provider Internal Medicine Hypertension Specialist
DX: I95.9 Hypotension, unspecified (principal)
CPT/HCPCS: 99204

== ENCOUNTER → 2023-03-23 15:40 | Outpatient (BNVA) | payer MEDICAID, SELFPAY | PROVIDERS: Visit Provider Internal Medicine Hypertension Specialist | DX: I95.9 Hypotension, unspecified (principal) | CPT/HCPCS: 99202 ==

== ENCOUNTER 2023-03-30 14:31 | Outpatient (AMB) | payer MEDICAID, SELFPAY ==
[2023-03-30 15:21] VITALS: BP 160/72; PULSE 79; BMI 26.1
--- NOTE | 2023-03-30 15:21 | MHC.OFFVIS ---
Intake Vital Signs 03/30/23 15:21 Height 5 ft 7 in Weight 166 lb 10.711 oz BMI 26.1 BP 160/72 H Blood Pressure Location Lt brachial Position Sitting Pulse 79 Pulse Source Pulse Oximeter Intake Visit Reasons: 1 mth fu echo/labs (rs) Linux Systems Administrator Required: Yes Linux Systems Administrator Language: Norwegian Creole Linux Systems Administrator Name: oliva carrillo [id number] Accompanied by: Grand Child Allergies No Known Allergies Allergy (Verified 03/30/23 15:24) Medication List - Last Reconciled 03/30/23 by Jenniffer Bernal NP-C amlodipine 10 mg PO DAILY clonidine HCl 0.1 mg PO BID metoprolol tartrate 100 mg PO BID 30 days spironolacton-hydrochlorothiaz 25-25 mg 1 tab PO DAILY HPI 1 mth fu echo/labs (rs) HPI Details Nery is a 77-year-old male with past medical history of hypertension who was referred to Cardiology for assistance with treatment. On last visit and echocardiogram and renal duplex were ordered. His lisinopril was changed to Aldactone. Today presents for follow-up with his grand daughter. He reports he has been feeling well with no concerning symptoms. He denies chest discomfort, shortness of breath, heart palpitations. He has good activity tolerance. He did see the compliance administrator and his medications were changed again. He is due to have blood work in another week. [facility] Medical History No pertinent family history Prostate troubles High blood pressure Surgical History History of hernia repair Housing: House Patient Tobacco Use Status: Never used Tobacco e-Cigarette/Vaping Use: Never Used service: No Current occupational status: retired Cognitive needs: No Hearing needs: No Vision needs: No Review of Systems Const All systems reviewed & are unremarkable except as noted in HPI and below ENT Denies dizziness Card Denies chest pain, Denies chest pain at rest, Denies chest pain with activity, Denies rapid heart rate, Denies pedal edema, Denies edema, Denies leg edema, Denies lightheadedness, Denies palpitations, Denies dyspnea, Denies dyspnea on exertion and Denies orthopnea Resp Denies cough, Denies dyspnea and Denies dyspnea on exertion GI Denies hematochezia and Denies change in stool character Musc Denies abnormal gait, Denies limited range of motion, Denies muscle cramps, Denies muscle weakness, Denies numbness, Denies radiating pain into limb, Denies stiffness and Denies tingling Neuro Denies abnormal gait, Denies dizziness, Denies numbness and Denies tingling Endo Denies palpitations Physical Exam Vital Signs: Last Vital Signs Pulse 79 03/30/23 15:21 BP 160/72 H 03/30/23 15:21 BMI result Body Mass Index 26.1 Const General: cooperative, healthy appearing, comfortable and no acute distress Orientation/consciousness: patient oriented x3 Neck Neck: Yes normal visual inspection Resp Effort & Inspection: normal respiratory effort Auscultation: clear to auscultation bilaterally, no crackles, no rales, no rhonchi and no wheezes Cardio Jugular venous distension: no JVD Rate: regular rate Rhythm: regular rhythm Heart sounds: S1 normal heart sound present, S2 normal heart sound present, no murmurs and no rubs Neuro General: patient oriented x3 Extrem General: Yes normal to inspection Psych Appearance: grossly normal Mental Status: mental status grossly normal Speech and movement: Normal speech and movement present Assessment & Plan Assessment & Plan (1) High blood pressure: Code(s): I10 - Essential (primary) hypertension Qualifiers: Hypertension type: primary hypertension Qualified Code(s): I10 - Essential (primary) hypertension Plan: History of hypertension that has remained elevated in spite of medical management. He was seen by Dr. Vargas in consultation last visit. On his lab work he was noted to have a low renin activity level and elevated aldosterone and renin ratio. He was taken off lisinopril and put on a combination Aldactone/hydrochlorothiazide. He was continued on amlodipine and metoprolol. An echocardiogram was done on 02/17/2023 showing EF greater than 70%, normal LV wall thickness, grade 1 diastolic dysfunction, no valve abnormalities. A renal duplex was ordered however not completed as of yet. He did see Nephrology, Dr. Burnett on 03/23/2023. His note was reviewed and states unlikely to be renal artery stenosis with the suppressed renin level . He is doing a workup for hyper aldosteronism. At this time patient is off his Aldactone/hydrochlorothiazide as well as metoprolol medications. He is only taking clonidine and amlodipine for blood pressure control. Blood pressure is elevated at 160/72 at this time. He is due for lab work for Nephrology in 1 week and then I anticipate his meds will be readjusted at that time. I will hold off on any medication changes presently as he is being evaluated by Nephrology. Will arrange for a cardiology follow-up in 3-4 months, sooner if needed to re-evaluate blood pressure and current treatment. At that time we will determine if any further cardiac workup will be needed. (2) Primary aldosteronism: Code(s): E26.09 - Other primary hyperaldosteronism Coding Level of Care Code Est Pt Level 3 (72718) Diagnoses Primary hypertension I10 Hypertension type: primary hypertension Primary aldosteronism E26.09 Time Spent (min) 24
== END 2023-03-30 16:12 | disposition home or self-care (01) ==
PROVIDERS: PCP Nurse Practitioner Family; Visit Provider Nurse Practitioner Family
DX: I10 Essential (primary) hypertension (principal); E26.09 Other primary hyperaldosteronism
CPT/HCPCS: 99213

== ENCOUNTER → 2023-03-30 14:31 | Outpatient (BNVA) | payer MEDICAID, SELFPAY | PROVIDERS: PCP Nurse Practitioner Family; Visit Provider Nurse Practitioner Family | DX: I10 Essential (primary) hypertension (principal); E26.09 Other primary hyperaldosteronism | CPT/HCPCS: 99212 ==

== ENCOUNTER 2023-04-06 08:15 | Outpatient (REF) | payer MEDICAID, SELFPAY ==
[2023-04-06 11:38] LABS: Anion Gap 10 (12-20); Blood Urea Nitrogen 14 mg/dL (9-16); Carbon Dioxide 27 mmol/L (22-29); Chloride 104 mmol/L (96-108); Estimated Glomerular Filt Rate > 60; Glucose Random 98 mg/dL (60-115); Potassium 3.5 mmol/L (3.3-5.1); Sodium 137 mmol/L (135-145)
[2023-04-09 17:38] LABS: Renin 0.17 ng/mL/h (0.25-5.82)
[2023-04-13 17:43] LABS: Aldosterone/Renin Ratio 33.3 Ratio (0.9-28.9); Plasma Renin Activity 0.18 ng/mL/h (0.25-5.82)
== END 2023-04-06 08:16 | disposition home or self-care (01) ==
LOC: HO.WFDLDS 08:15
PROVIDERS: Internal Medicine Cardiovascular Disease; Visit Provider Internal Medicine Hypertension Specialist
DX: E26.09 Other primary hyperaldosteronism (principal); I10 Essential (primary) hypertension
CPT/HCPCS: 36415; 80048; 82088; 84244

== ENCOUNTER 2023-04-13 15:49 | Outpatient (AMB) | payer MEDICAID, SELFPAY ==
[2023-04-13 15:50] VITALS: BP 152/84; PULSE 88; O2SAT 98; BMI 25.8
--- NOTE | 2023-04-13 15:50 | HO.NEPHOV ---
HPI HPI Comments History of Present Illness Details This is a pleasant 77-year-old man from [facility] who was accompanied by son today for evaluation of hypertension. His son was able to translate To summarize the patient has had hypertension for several years. It has been difficult to control. He was on amlodipine and enalapril. In January he was found to have an elevated PA/PRA of 85.7 and the aldosterone level was 6. Plasma renin activity was suppressed at 0.07. It is unclear what medications he was on at that time. He was probably on an LILLIANA-inhibitor according to his son. In February than left close discontinued and he was started on Aldactazide . Since then the blood pressure seems to be better controlled. He is here for further evaluation of possible primary hyperaldosteronism. 04/13/23: Doing well PRA is 0.17 PA is pending K is normal. No alkalosis [facility] Medical History No pertinent family history Prostate troubles High blood pressure Surgical History History of hernia repair Social History Housing: House Patient Tobacco Use Status: Never used Tobacco e-Cigarette/Vaping Use: Never Used service: No Current occupational status: retired Cognitive needs: No Hearing needs: No Vision needs: No Vital Signs 04/13/23 15:50 04/13/23 16:07 Height 5 ft 7 in Weight 164 lb 8 oz BMI 25.8 BP 152/84 H 130/70 Blood Pressure Location Lt brachial Position Sitting Pulse 88 Pulse Source Pulse Oximeter Pulse Oximetry (%) 98 Oxygen Delivery Method Room Air Physical Exam Vital Signs: Last Vital Signs Pulse 88 04/13/23 15:50 BP 152/84 H 04/13/23 15:50 Pulse Ox 98 04/13/23 15:50 Oxygen Delivery Method Room Air 04/13/23 15:50 BMI result Body Mass Index 25.8 Const General: comfortable; No acute distress Orientation/consciousness: patient oriented x3 Eyes General: appearance normal, both eyes and all related structures Visual Duron: normal visual duron by confrontation Neck Neck: Yes supple and Yes no JVD Resp Effort & Inspection: normal respiratory effort and respiratory effort not decreased Auscultation: rhonchi Cardio Palpation: no palpable S3 and no palpable S4 Heart sounds: no rubs GI Inspection: Yes normal to inspection Palpation (GI): Soft to palpation Percussion: Yes normal to percussion Auscultation: normal bowel sounds General: Yes no CVA tenderness Back/Spine/Pelvis Back: no CVA tenderness Skin General skin exam: no petechiae and no purpura Neuro General: patient oriented x3 and no focal motor deficits Extrem General: No clubbing and No edema Assessment & Plan Assessment & Plan (1) Hypotension: Code(s): I95.9 - Hypotension, unspecified Plan Elderly man with longstanding complicated history of hypertension has been referred for evaluation of hypertension and to rule out hyperaldosteronism. Plasma aldosterone level was not elevated but the plasma aldosterone/renin ratio was elevated at 85.7. It is unclear as to what medication he was on at that time. He had borderline hypokalemia. But no alkalosis. I have initiated workup for possible hyperaldosteronism. Unlikely to be renal artery stenosis with a suppressed renin level. PA is pending PRA is suppressed at 0.17 K and tCO2 are normal BP is well controlled for now at 130/70 in both upper extremities. ( initial BP was elevated at 154/80) No change in meds today It is essential to keep him on a low salt diet Discussed with patient's son Futher w/u based on plsama Aldosterone levels and WI/PRA ratio. Orders: Orders CT abdomen wo IV con Today I10 - Essential (primary) hypertension Coding Level of Care Code Est Pt Level 3 (24667) Diagnoses Hypotension I95.9 Results Reviewed Nephrology Results: Sodium 137 mmol/L (135-145) 04/06/23 Potassium 3.5 mmol/L (3.3-5.1) 04/06/23 Chloride 104 mmol/L (96-108) 04/06/23 Carbon Dioxide 27 mmol/L (22-29) 04/06/23 BUN 14 mg/dL (9-16) 04/06/23 Creatinine 1.06 mg/dL (0.5-1.4) 04/06/23 Calcium 9.0 mg/dL (8.4-10.2) 04/06/23 Urine Protein Negative mg/dL (Neg-Trace) 01/27/23 Urine Creatinine 125.41 mg/dL 01/27/23
[2023-04-13 16:07] VITALS: BP 130/70
== END 2023-04-13 16:07 | disposition home or self-care (01) ==
PROVIDERS: PCP Nurse Practitioner Family; Visit Provider Internal Medicine Hypertension Specialist
DX: I95.9 Hypotension, unspecified (principal)
CPT/HCPCS: 99213

== ENCOUNTER → 2023-04-13 15:49 | Outpatient (BNVA) | payer MEDICAID, SELFPAY | PROVIDERS: PCP Nurse Practitioner Family; Visit Provider Internal Medicine Hypertension Specialist | DX: I95.9 Hypotension, unspecified (principal) | CPT/HCPCS: 99212 ==

== ENCOUNTER 2023-06-22 16:28 | Outpatient (AMB) | payer MEDICAID, SELFPAY ==
[2023-06-22 16:38] VITALS: BP 160/78; PULSE 106; RESP 13; TEMP 36.4; O2SAT 99; BMI 27.2
--- NOTE | 2023-06-22 16:38 | MHC.PC.OV ---
Vital Signs 06/22/23 16:38 06/22/23 17:12 Height 5 ft 7 in Weight 173 lb 6 oz BMI 27.2 BP 160/78 H 140/70 H Blood Pressure Location Rt brachial Rt brachial Position Sitting Sitting Respiration 13 Pulse 106 H Pulse Source Pulse Oximeter Temp 97.6 F Temp Source Temporal Artery Scan Pulse Oximetry (%) 99 Oxygen Delivery Method Room Air Intake Visit Reasons: Follow up for blood pressure Intake Note: Refill on spironalactone. International Accounting Manager Required: Yes International Accounting Manager Name: Son Accompanied by: Family/Other Allergies No Known Allergies Allergy (Verified 06/22/23 17:05) Medication List - Last Reconciled 06/22/23 by Mark Rodriguez CNP amlodipine 10 mg PO DAILY 30 days metoprolol tartrate 100 mg PO BID 30 days spironolacton-hydrochlorothiaz 25-25 mg 1 tab PO DAILY Tobacco use date assessed: 06/22/23 Fall risk assessment: No Falls in past year Last assessed Fall Risk: 06/22/23 Dental Screening Dental Screen Date: 06/22/23 Did you have a dental visit in the last 12 months?: No Did you have a dental problem in the last 6 months where you did not have access to dental care?: No Was dental information given to patient?: Yes HPI HPI Comments History of Present Illness Details 77-year-old Creole speaking male, accompanied by his son, presents for hypertension follow-upHe notes that he has been taking amlodipine, Metoprolol, and Spironolactone-HCTZ as prescribed. He ran out of Spironolactone-HCTZ His son states that his home blood pressure readings are usually in the 130s-140s/70s-80s He has a follow up appointment with Nephrology early July No acute symptoms at this time Interpretation by the patient's son per patient's preference [facility] Medical History No pertinent family history Prostate troubles High blood pressure Surgical History History of hernia repair Social History Housing: House Patient Tobacco Use Status: Never used Tobacco e-Cigarette/Vaping Use: Never Used service: No Current occupational status: retired Cognitive needs: No Hearing needs: No Vision needs: No Questionnaire Thrive Questionnaire Date Thrive assessed: 12/02/22 LUKASZ-7 AMB Questionnaire LUKASZ-7 Date LUKASZ - 7 assessed: 10/21/22 Source: Developed by Drs. Alex Fung, Luma Gan, Gideon Rolon and colleagues, with an educational elder from [employer]. Review of Systems Const Details: Const Denies chills, Denies fatigue, Denies fever(s), Denies headache(s) and Denies weakness ENT Denies dizziness and Denies headache(s) Card Denies chest pain, Denies lightheadedness, Denies dyspnea and Denies other (Palpitations) Resp Denies cough, Denies dyspnea, Denies wheezing and Denies other ( shortness of breath) GI Denies abdominal pain, Denies melena, Denies hematochezia, Denies change in bowel habits, Denies dyspepsia and Denies nausea Denies hematuria and Denies dysuria Musc Denies abnormal gait, Denies myalgias, Denies arthralgias, Denies numbness and Denies tingling Skin/Breast Denies rash, Denies unusual bruising and Denies wounds Neuro Denies abnormal gait, Denies dizziness, Denies headache(s), Denies memory loss, Denies numbness, Denies Sensory deficit (Neuro), Denies tingling and Denies weakness Psych Denies anxiety, Denies depression, Denies memory loss Endo Denies cold intolerance, Denies fatigue, Denies heat intolerance, Denies polydipsia and Denies polyuria Aller/Immun Denies wheezing Physical exam (Primary Care) Vital Signs: Last Vital Signs Temp 97.6 F 06/22/23 16:38 Pulse 106 H 06/22/23 16:38 Resp 13 06/22/23 16:38 BP 160/78 H 06/22/23 16:38 Pulse Ox 99 06/22/23 16:38 Oxygen Delivery Method Room Air 06/22/23 16:38 BMI result Body Mass Index 27.2 Tobacco/Smoking Status: Tobacco use Status Tobacco use date assessed 06/22/23 06/22/23 16:41 Patient Tobacco Use Status Never used Tobacco 06/22/23 16:41 e-Cigarette/Vaping Use Never Used 06/22/23 16:41 Thrive Assessment: Date of Thrive Assessment Date Thrive assessed 12/02/22 06/22/23 16:41 Const Other: General: no acute distress and well developed Nutritional Appearance: well nourished Orientation/consciousness: patient oriented x3 [facility] Head: Yes normocephalic and Yes atraumatic Eyes General: appearance normal, both eyes and all related structures Pupils: Equal, round and reactive pupils present EOM: EOMs intact bilaterally Resp Effort & Inspection: normal respiratory effort Auscultation: clear to auscultation bilaterally Cardio Rate: regular rate Rhythm: regular rhythm Heart sounds: S1 normal heart sound present, S2 normal heart sound present, no gallops, no murmurs and no rubs GI Palpation (GI): No Abdominal aortic bruit present, Soft to palpation, nontender, No hepatosplenomegaly present and No Rebound tenderness present Auscultation: normal bowel sounds General: Yes no CVA tenderness Back/Spine/Pelvis Back: no CVA tenderness Cervical Spine: cervical ROM normal and No Cervical spine tenderness Thoracic/Lumbar Spine: thoraco-lumbar ROM normal, No pain with thoraco-lumbar ROM, No thoracic spinal tenderness and No lumbar spinal tenderness Extrem General: Yes normal to inspection, No edema and No calf tenderness Skin General: warm and dry. Normal skin color. Normal skin turgor Lesions: no lesions Rashes: no rashes Trauma: no lacerations or abrasions Wounds: no wounds Nails: normal Neuro General: patient oriented x3, gait normal and no focal neuro deficit Cranial nerves: Yes Equal, round and reactive pupils present Cognition (Neuro): normal cognition Gait exam (Neuro): Normal gait present Sensory Exam: No Sensory deficit (Neuro) Psych Appearance: grossly normal Affect: normal affect Attitude: cooperative Thought process: Normal thought process present Assessment and Plan Assessment & Plan (1) Hypotension: Code(s): I95.9 - Hypotension, unspecified Plan: Resting blood pressure is 140/70, above goal of less than 140/90 Spironolactone-hydrochlorothiazide refilled x 1 month. Take as prescribed Continue to take amlodipine and metoprolol as prescribed Low-sodium diet and routine exercise encouraged Follow-up with neurology and Cardiology as planned Return sooner with symptoms or concerns Verbalized understanding and agreed with treatment plan Medications: Resumed spironolacton-hydrochlorothiaz 25-25 mg 1 tab PO DAILY 30 tabs 0RF Mark Rodriguez, ES spironolacton-hydrochlorothiaz 25-25 mg 1 tab PO DAILY 30 tabs 2RF Chris Vargas MD Coding Level of Care Code Est Pt Level 4 (05578) Diagnoses Hypotension I95.9
[2023-06-22 17:12] VITALS: BP 140/70
== END 2023-06-22 17:24 | disposition home or self-care (01) ==
PROVIDERS: PCP Nurse Practitioner Family; Visit Provider Nurse Practitioner Family
DX: I95.9 Hypotension, unspecified (principal); I10 Essential (primary) hypertension
CPT/HCPCS: 99214

== ENCOUNTER 2023-07-13 15:01 | Outpatient (AMB) | payer MEDICAID, SELFPAY ==
[2023-07-13 15:18] VITALS: BP 138/68; PULSE 80; O2SAT 97; BMI 26.5
--- NOTE | 2023-07-13 15:18 | HO.NEPHOV_ITS ---
HPI HPI Comments History of Present Illness Details 77-year-old Creole speaking male, accomp anied by his son, presents for hypertension follow-upHe notes that he has been taking amlodipine, Metoprolol, and Spironolactone-HCTZ as prescribed. He ran out of Spironolactone-HCTZ His son states that his home blood pressure readings are usually in the 130s-140s/70s-80s He has a follow up appointment with Nephrology early July No acute symptoms at this time Interpretation by the patient's son per patient's preference 07/13/23 Doing well BP well controlled Did not undergo cT scan yet [facility] Medical History No pertinent family history Prostate troubles High blood pressure Surgical History History of hernia repair Social History Housing: House Patient Tobacco Use Status: Never used Tobacco e-Cigarette/Vaping Use: Never Used service: No Current occupational status: retired Cognitive needs: No Hearing needs: No Vision needs: No Vital Signs 07/13/23 15:18 Height 5 ft 7 in Weight 169 lb BMI 26.5 BP 138/68 Blood Pressure Location Rt brachial Position Sitting Pulse 80 Pulse Source Pulse Oximeter Pulse Oximetry (%) 97 Oxygen Delivery Method Room Air Physical Exam Vital Signs: Last Vital Signs Pulse 80 07/13/23 15:18 BP 138/68 07/13/23 15:18 Pulse Ox 97 07/13/23 15:18 Oxygen Delivery Method Room Air 07/13/23 15:18 BMI result Body Mass Index 26.5 Const General: comfortable; No acute distress Orientation/consciousness: patient oriented x3 Eyes General: appearance normal, both eyes and all related structures Visual Duron: normal visual duron by confrontation Neck Neck: Yes supple and Yes no JVD Resp Effort & Inspection: normal respiratory effort and respiratory effort not decreased Auscultation: rhonchi Cardio Palpation: no palpable S3 and no palpable S4 Heart sounds: no rubs GI Inspection: Yes normal to inspection Palpation (GI): Soft to palpation Percussion: Yes normal to percussion Auscultation: normal bowel sounds General: Yes no CVA tenderness Back/Spine/Pelvis Back: no CVA tenderness Skin General skin exam: no petechiae and no purpura Neuro General: patient oriented x3 and no focal motor deficits Extrem General: No clubbing and No edema Assessment & Plan Assessment & Plan (1) Hypotension: Code(s): I95.9 - Hypotension, unspecified Plan Elderly man with longstanding complicated history of hypertension has been referred for evaluation of hypertension and to rule out hyperaldosteronism. Plasma aldosterone level was not elevated but the plasma aldosterone/renin ratio was elevated at 85.7. It is unclear as to what medication he was on at that time. He had borderline hypokalemia. But no alkalosis. workup for possible hyperaldosteronism. Unlikely to be renal artery stenosis with a suppressed renin level. PRA is suppressed at 0.17 K and tCO2 are normal BP is well controlled for now at 130/70 in both upper extremities. ( initial BP was elevated at 154/80) No change in meds today It is essential to keep him on a low salt diet Discussed with patient's son Will obtain CT of Adrenals Medications: Refilled spironolacton-hydrochlorothiaz 25-25 mg 1 tab PO DAILY 90 days 90 tabs 3RF Coding Level of Care Code Est Pt Level 4 (38440) Diagnoses Hypotension I95.9 Results Reviewed Nephrology Results: Sodium 137 mmol/L (135-145) 04/06/23 Potassium 3.5 mmol/L (3.3-5.1) 04/06/23 Chloride 104 mmol/L (96-108) 04/06/23 Carbon Dioxide 27 mmol/L (22-29) 04/06/23 BUN 14 mg/dL (9-16) 04/06/23 Creatinine 1.06 mg/dL (0.5-1.4) 04/06/23 Calcium 9.0 mg/dL (8.4-10.2) 04/06/23
== END 2023-07-13 15:43 | disposition home or self-care (01) ==
PROVIDERS: PCP Nurse Practitioner Family; Visit Provider Internal Medicine Hypertension Specialist
DX: I95.9 Hypotension, unspecified (principal)
CPT/HCPCS: 99214

== ENCOUNTER → 2023-07-13 15:01 | Outpatient (BNVA) | payer MEDICAID, SELFPAY | PROVIDERS: PCP Nurse Practitioner Family; Visit Provider Internal Medicine Hypertension Specialist | DX: I95.9 Hypotension, unspecified (principal) | CPT/HCPCS: 99212 ==

== ENCOUNTER 2023-07-20 16:56 | Outpatient (AMB) | payer MEDICAID, SELFPAY ==
[2023-07-20 16:57] VITALS: BP 142/74; PULSE 94; RESP 13; TEMP 36.4; O2SAT 98; BMI 26.9
--- NOTE | 2023-07-20 16:57 | A.OFFPC_ITS ---
Vital Signs 07/20/23 16:57 07/20/23 17:19 Height 5 ft 7 in Weight 172 lb BMI 26.9 BP 142/74 H 130/70 Blood Pressure Location Rt brachial Rt brachial Position Sitting Sitting Respiration 13 Pulse 94 Pulse Source Pulse Oximeter Temp 97.6 F Temp Source Temporal Artery Scan Pulse Oximetry (%) 98 Oxygen Delivery Method Room Air Intake Visit Reasons: F/U HTN Stunt Woman Required: Yes Accompanied by: Daughter Allergies No Known Allergies Allergy (Verified 07/20/23 17:03) Tobacco use date assessed: 06/22/23 Fall risk assessment: No Falls in past year Last assessed Fall Risk: 07/20/23 Dental Screening Dental Screen Date: 07/20/23 Did you have a dental visit in the last 12 months?: No Did you have a dental problem in the last 6 months where you did not have access to dental care?: No Was dental information given to patient?: Yes HPI HPI Comments History of Present Illness Details 77-year-old Creole speaking male, accomp anied by his daughter, presents for hypertension follow-up He is currently on amlodipine and spironolactone-hydrochlorothiazide which he admits to taking as prescribed without adverse reactions He is followed by [facility] Nephrology. He was last seen on 07/13/2023. There is plan in placed to do CT of adrenal glands. Metoprolol 100 mg twice daily was held by Nephrology since March 2023 He offers no complaints and denies acute symptoms at this time Interpretation by a professional Creole pile driver operator via video call [facility] Medical History No pertinent family history Prostate troubles High blood pressure Surgical History History of hernia repair Social History Housing: House Patient Tobacco Use Status: Never used Tobacco e-Cigarette/Vaping Use: Never Used service: No Current occupational status: retired Cognitive needs: No Hearing needs: No Vision needs: No Questionnaire Thrive Questionnaire Date Thrive assessed: 12/02/22 LUKASZ-7 AMB Questionnaire LUKASZ-7 Date LUKASZ - 7 assessed: 10/21/22 Source: Developed by Drs. Alex Fung, Luma Gan, Gideon Rolon and colleagues, with an educational elder from [employer]. Review of Systems Const Details: Const Denies chills, Denies fatigue, Denies fever(s), Denies headache(s) and Denies weakness ENT Denies dizziness and Denies headache(s) Card Denies chest pain, Denies lightheadedness, Denies dyspnea and Denies other (Palpitations) Resp Denies cough, Denies dyspnea, Denies wheezing and Denies other ( shortness of breath) GI Denies abdominal pain, Denies melena, Denies hematochezia, Denies change in bowel habits, Denies dyspepsia and Denies nausea Denies hematuria and Denies dysuria Musc Denies abnormal gait, Denies myalgias, Denies arthralgias, Denies numbness and Denies tingling Skin/Breast Denies rash, Denies unusual bruising and Denies wounds Neuro Denies abnormal gait, Denies dizziness, Denies headache(s), Denies memory loss, Denies numbness, Denies Sensory deficit (Neuro), Denies tingling and Denies weakness Psych Denies anxiety, Denies depression, Denies memory loss Endo Denies cold intolerance, Denies fatigue, Denies heat intolerance, Denies polydipsia and Denies polyuria Aller/Immun Denies wheezing Physical exam (Primary Care) Vital Signs: Last Vital Signs Temp 97.6 F 07/20/23 16:57 Pulse 94 07/20/23 16:57 Resp 13 07/20/23 16:57 BP 142/74 H 07/20/23 16:57 Pulse Ox 98 07/20/23 16:57 Oxygen Delivery Method Room Air 07/20/23 16:57 BMI result Body Mass Index 26.9 Tobacco/Smoking Status: Tobacco use Status Tobacco use date assessed 06/22/23 07/20/23 17:03 Patient Tobacco Use Status Never used Tobacco 07/20/23 17:03 e-Cigarette/Vaping Use Never Used 07/20/23 17:03 Thrive Assessment: Date of Thrive Assessment Date Thrive assessed 12/02/22 07/20/23 17:03 Const Other: General: no acute distress and well developed Nutritional Appearance: well nourished Orientation/consciousness: patient oriented x3 HENMT Head: Yes normocephalic and Yes atraumatic Eyes General: appearance normal, both eyes and all related structures Pupils: Equal, round and reactive pupils present EOM: EOMs intact bilaterally Resp Effort & Inspection: normal respiratory effort Auscultation: clear to auscultation bilaterally Cardio Rate: regular rate Rhythm: regular rhythm Heart sounds: S1 normal heart sound present, S2 normal heart sound present, no gallops, no murmurs and no rubs GI Palpation (GI): No Abdominal aortic bruit present, Soft to palpation, nontender, No hepatosplenomegaly present and No Rebound tenderness present Auscultation: normal bowel sounds General: Yes no CVA tenderness Back/Spine/Pelvis Back: no CVA tenderness Cervical Spine: cervical ROM normal and No Cervical spine tenderness Thoracic/Lumbar Spine: thoraco-lumbar ROM normal, No pain with thoraco-lumbar ROM, No thoracic spinal tenderness and No lumbar spinal tenderness Extrem General: Yes normal to inspection, No edema and No calf tenderness Skin General: warm and dry. Normal skin color. Normal skin turgor Neuro General: patient oriented x3, gait normal and no focal neuro deficit Cranial nerves: Yes Equal, round and reactive pupils present Cognition (Neuro): normal cognition Gait exam (Neuro): Normal gait present Sensory Exam: No Sensory deficit (Neuro) Psych Appearance: grossly normal Affect: normal affect Attitude: cooperative Thought process: Normal thought process present Assessment and Plan Assessment & Plan (1) High blood pressure: Code(s): I10 - Essential (primary) hypertension Qualifiers: Hypertension type: primary hypertension Qualified Code(s): I10 - Essential (primary) hypertension Plan: Resting BP is 130/70 Advised to continue with current treatment regimen Low-sodium diet encouraged Continue follow-up with Nephrology as planned Return in 1 month for an extended physical exam or sooner with symptoms or concerns Verbalized understanding and agreed with treatment plan Coding Level of Care Code Est Pt Level 3 (58081) Diagnoses Primary hypertension I10 Hypertension type: primary hypertension
[2023-07-20 17:19] VITALS: BP 130/70
== END 2023-07-20 17:22 | disposition home or self-care (01) ==
PROVIDERS: PCP Nurse Practitioner Family; Visit Provider Nurse Practitioner Family
DX: I10 Essential (primary) hypertension (principal)
CPT/HCPCS: 99213

== ENCOUNTER 2023-08-03 13:58 | Outpatient (AMB) | payer MEDICAID, SELFPAY ==
[2023-08-03 14:28] VITALS: BP 140/72; PULSE 90; BMI 26.5
--- NOTE | 2023-08-03 14:28 | MHC.OFFVIS ---
Intake Vital Signs 08/03/23 14:28 Height 5 ft 7 in Weight 169 lb 5.04 oz BMI 26.5 BP 140/72 H Blood Pressure Location Lt brachial Position Sitting Pulse 90 Pulse Source Monitor Intake Visit Reasons: 3 plus mth f/up Edge Plugger Required: Yes Edge Plugger Name: oliva wong [id number] Allergies No Known Allergies Allergy (Verified 08/03/23 14:34) Medication List - Last Reconciled 08/03/23 by Jenniffer Bernal, [employer] [facility]-C amlodipine 10 mg PO DAILY 30 days metoprolol tartrate 100 mg PO BID 30 days spironolacton-hydrochlorothiaz 25-25 mg 1 tab PO DAILY 90 days HPI 3 plus mth f/up HPI Details Nery is a 77-year-old male with past medical history of hypertension who was referred to Cardiology for assistance with blood pressure management. An echocardiogram was done which showed hyperdynamic EF and normal LV wall thickness. A renal duplex was ordered however not completed as of yet. He has had no recent med changes. Today He reports he has been feeling well with no concerning symptoms. He denies chest discomfort, shortness of breath, heart palpitations. He has good activity tolerance. Since his last visit here he has seen the rug drying machine operator as well. He is taking all his medications as directed. His granddaughter is present. Certified [facility] seat cover maker used. [facility] Medical History No pertinent family history Prostate troubles High blood pressure Surgical History History of hernia repair Social History Housing: House Patient Tobacco Use Status: Never used Tobacco e-Cigarette/Vaping Use: Never Used service: No Current occupational status: retired Cognitive needs: No Hearing needs: No Vision needs: No Review of Systems Const All systems reviewed & are unremarkable except as noted in HPI and below ENT Denies dizziness Card Denies chest pain, Denies chest pain at rest, Denies chest pain with activity, Denies rapid heart rate, Denies pedal edema, Denies edema, Denies leg edema, Denies lightheadedness, Denies palpitations, Denies dyspnea, Denies dyspnea on exertion and Denies orthopnea Resp Denies cough, Denies dyspnea and Denies dyspnea on exertion GI Denies hematochezia and Denies change in stool character Musc Denies abnormal gait, Denies limited range of motion, Denies muscle cramps, Denies muscle weakness, Denies numbness, Denies radiating pain into limb, Denies stiffness and Denies tingling Neuro Denies abnormal gait, Denies dizziness, Denies numbness and Denies tingling Endo Denies palpitations Physical Exam Vital Signs: Last Vital Signs Pulse 90 08/03/23 14:28 BP 140/72 H 08/03/23 14:28 BMI result Body Mass Index 26.5 Const General: cooperative, healthy appearing, comfortable and no acute distress Orientation/consciousness: patient oriented x3 Neck Neck: Yes normal visual inspection and Yes no JVD Resp Effort & Inspection: normal respiratory effort Auscultation: clear to auscultation bilaterally, no rales, no rhonchi and no wheezes Cardio Jugular venous distension: no JVD Rate: regular rate Rhythm: regular rhythm Heart sounds: S1 normal heart sound present, S2 normal heart sound present, no murmurs and no rubs Neuro General: patient oriented x3 Extrem General: Yes normal to inspection and No no pedal edema Psych Appearance: grossly normal Mental Status: mental status grossly normal Speech and movement: Normal speech and movement present Assessment & Plan Assessment & Plan (1) High blood pressure: Code(s): I10 - Essential (primary) hypertension Qualifiers: Hypertension type: primary hypertension Qualified Code(s): I10 - Essential (primary) hypertension Plan: History of hypertension that had remained elevated in spite of medical management. He was seen by Dr. Vargas in consultation last visit. On his lab work he was noted to have a low renin activity level and elevated aldosterone and renin ratio. He was taken off lisinopril and put on a combination Aldactone/hydrochlorothiazide. He was continued on amlodipine and metoprolol. An echocardiogram was done on 02/17/2023 showing EF greater than 70%, normal LV wall thickness, grade 1 diastolic dysfunction, no valve abnormalities. A renal duplex was ordered however not completed as of yet. He has been seeing Nephrology, Dr. Burnett and further testing has been done. His note was reviewed and states unlikely to be renal artery stenosis with the suppressed renin level . At this time patient he is on Aldactone/hydrochlorothiazide, amlodipine and metoprolol. His blood pressure was initially 140/72 in recheck done by me after sitting for 10 minutes was 138/72. Overall he is pleased with how he is feeling and current blood pressure readings. Informed him that his renal duplex is still pending. They will call centralized scheduling to have this set up. He has Nephrology follow-up due in September. Will have him see Dr. Vargas in follow-up in 6 months, sooner if needed. (2) Primary aldosteronism: Code(s): E26.09 - Other primary hyperaldosteronism Plan: Following with Nephrology Plan Time spent on chart review, documentation, interview and assessment Coding Level of Care Code Est Pt Level 3 (96972) Diagnoses Primary hypertension I10 Hypertension type: primary hypertension Primary aldosteronism E26.09 Time Spent (min) 24
== END 2023-08-03 15:22 | disposition home or self-care (01) ==
PROVIDERS: PCP Nurse Practitioner Family; Visit Provider Nurse Practitioner Family
DX: I10 Essential (primary) hypertension (principal); E26.09 Other primary hyperaldosteronism
CPT/HCPCS: 99213

== ENCOUNTER → 2023-08-03 13:58 | Outpatient (BNVA) | payer MEDICAID, SELFPAY | PROVIDERS: PCP Nurse Practitioner Family; Visit Provider Nurse Practitioner Family | DX: E26.09 Other primary hyperaldosteronism (principal); I10 Essential (primary) hypertension | CPT/HCPCS: 99212 ==

== ENCOUNTER 2023-08-24 16:04 | Outpatient (AMB) | payer MEDICAID, SELFPAY ==
--- NOTE | 2023-08-24 16:10 | MHC.PC.OV ---
Vital Signs 08/24/23 16:18 Height 5 ft 7 in Weight 169 lb BMI 26.5 BP 118/60 Blood Pressure Location Rt brachial Position Sitting Respiration 16 Pulse 69 Pulse Source Pulse Oximeter Temp 98.6 F Temp Source Oral Pulse Oximetry (%) 97 Intake Visit Reasons: CPE Intake Note: Physical Project Drilling Engineer Required: Yes Project Drilling Engineer Name: Son will be translating Accompanied by: Son Allergies No Known Allergies Allergy (Verified 08/24/23 16:25) Medication List - Last Reconciled 08/24/23 by Mark Rodriguez CNP amlodipine 10 mg PO DAILY 30 days metoprolol tartrate 100 mg PO BID 30 days spironolacton-hydrochlorothiaz 25-25 mg 1 tab PO DAILY 90 days Tobacco use date assessed: 08/24/23 Fall risk assessment: No Falls in past year Last assessed Fall Risk: 08/24/23 Dental Screening Dental Screen Date: 08/24/23 Did you have a dental visit in the last 12 months?: No Did you have a dental problem in the last 6 months where you did not have access to dental care?: Yes Was dental information given to patient?: Yes HPI HPI Comments History of Present Illness Details 77-year-old Creole speaking male, accompanied by his son, presents for an extended physical exam. He has history of hypertension, on amlodipine 10mg daily, metoprolol 100mg twice daily, and spironolactone-HCTZ 25/25mg daily. He is followed by [facility] nephrology and cardiology for hypertension. He admits to taking his medications as prescribed without adverse reactions. He reports diminished hearing in both ears in the past 1 month. He notes that he is unsure whether he has ever had a colonoscopy He states that he has not been vaccinated for pneumonia and shingles He is not up-to-date on the current flu vaccine. He does not want to be vaccinated for the flu He has not had a dental visit in the past 12 months. His son plans on scheduling an appointment for him with a dentist. [facility] Medical History No pertinent family history Prostate troubles High blood pressure Surgical History History of hernia repair Social History Housing: House Patient Tobacco Use Status: Never used Tobacco e-Cigarette/Vaping Use: Never Used Second Hand Smoke Exposure: No service: No Current occupational status: retired Cognitive needs: No Hearing needs: No Vision needs: No Questionnaire PHQ-9 Over the last 2 weeks, how often have you been bothered by any of the following problems? 1. Little interest or pleasure in doing things: not at all 2. Feeling down, depressed, or hopeless: not at all 3. Trouble falling or staying asleep, or sleeping too much: not at all 4. Feeling tired or having little energy: not at all 5. Poor appetite or overeating: not at all 6. Feeling bad about yourself - or that you are a failure or have let yourself or your family down: not at all 7. Trouble concentrating on things, such as reading the newspaper or watching television: not at all 8. Moving or speaking so slowly that other people could have noticed. Or the opposite - being so fidgety or restless that you have been moving around a lot more than usual: not at all 9. Thoughts that you would be better off or of hurting yourself in some way: not at all Total score: 0 Depression Screening Interpretation: Negative Depression Screening Done: Yes 37693 - PHQ-9 Billing: Yes Source: Developed by Drs. Alex Fung, Luma Gan, Gideon Rolon and colleagues, with an educational elder from [employer] Thrive Questionnaire Date Thrive assessed: 08/24/23 I am a: Parent/Caregiver What is your living situation today?: I have a steady place to live Within the past 12 months, did the food you bought not last and you didn't have the money to get more?: Never true Within the past 12 months, did you worry whether your food would run out before you got money to buy more?: Never true Do you have trouble paying for medicines?: No Do you have trouble getting transportation to medical appointments?: Yes Do you have trouble paying your heating and electricity bill?: No Do you have trouble taking care of your child, family member or friend?: No Do you have trouble with day-to-day activities such as bathing, preparing meals, shopping, managing finances, etc.?: No Are you currently unemployed and looking for a job?: No Are you interested in more education?: No Please select the resources that you would like help with: Transportation Currently or been in a relationship where the following occur: no concerns reported THRIVE Score: 1 AUDIT C Alcohol Use Questionnaire (AUDIT-C) 1. How often do you have a drink containing alcohol?: Never 3. How often do you have six or more drinks on one occasion?: Never Total Score: 0 LUKASZ-7 AMB Questionnaire LUKASZ-7 Date LUKASZ - 7 assessed: 08/24/23 Feeling nervous, anxious, or on edge: 0 = Not at all Not being able to stop or control worryin = Not at all Worrying too much about different things: 0 = Not at all Trouble relaxin = Not at all Being so restless that it is hard to sit still: 0 = Not at all Becoming easily annoyed or irritable: 0 = Not at all Feeling afraid as if something awful might happen: 0 = Not at all Total LUKASZ-7 score (0-4 normal; 5-9 mild; 10-14 moderate; 15-21 severe): 0 Source: Developed by Drs. Alex Fung, Luma Gan, Gideon Rolon and colleagues, with an educational elder from [employer]). LUKASZ-7 Assessment Billing LUKASZ-7 Assessment Tool: LUKASZ-7 Assessment 04725 Review of Systems Const Details: Denies chills, Denies fatigue, Denies fever(s), Denies headache(s) and Denies weakness HEENT Denies change in vision, Denies dizziness, Denies headache(s), Reports hearing loss, Denies nasal congestion, Denies sinus pain, Denies sinus pressure and Denies sore throat Card Denies chest pain, Denies lightheadedness, Denies dyspnea and Denies other (palpitations) Resp Denies cough, Denies dyspnea and Denies wheezing GI Denies abdominal pain, Denies melena, Denies hematochezia, Denies change in bowel habits, Denies dyspepsia and Denies nausea Denies hematuria and Denies dysuria Musc Denies abnormal gait, Denies myalgias, Denies arthralgias, Denies numbness and Denies tingling Skin/Breast Denies rash, Denies unusual bruising and Denies wounds Neuro Denies abnormal gait, Denies dizziness, Denies headache(s), Denies memory loss, Denies numbness, Denies Sensory deficit (Neuro), Denies tingling and Denies weakness Psych Denies anxiety, Denies depression and Denies memory loss Endo Denies cold intolerance, Denies fatigue, Denies heat intolerance, Denies polydipsia and Denies polyuria Alex/Lymph Denies easy bleeding and Denies easy bruising Aller/Immun Denies wheezing Physical exam (Primary Care) Vital Signs: Last Vital Signs Temp 98.6 F 08/24/23 16:18 Pulse 69 08/24/23 16:18 Resp 16 08/24/23 16:18 BP 118/60 08/24/23 16:18 Pulse Ox 97 08/24/23 16:18 BMI result Body Mass Index 26.5 Tobacco/Smoking Status: Tobacco use Status Tobacco use date assessed 08/24/23 08/24/23 16:12 Patient Tobacco Use Status Never used Tobacco 08/24/23 16:10 e-Cigarette/Vaping Use Never Used 08/24/23 16:10 PHQ-9: PHQ-9 Score PHQ-9: Total score 0 08/24/23 16:22 Depression Screening Interpretation: Negative Thrive Assessment: Date of Thrive Assessment Date Thrive assessed 08/24/23 08/24/23 16:22 Currently or been in a relationship where the following occur: no concerns reported Const Other: General: no acute distress, well developed, alert and awake Nutritional Appearance: well nourished Orientation/consciousness: patient oriented x3 HENMT Head is normocephalic Bilateral ear canal and TM are normal Nasal turbinates and oropharynx are pink and moist Sinuses are nontender with palpation No auricular or cervical lymphadenopathy Ears: hearing grossly normal bilaterally and TM's normal bilaterally General nose exam: Normal external nose present and Normal nares present Mouth: Normal oral and palatal mucosa present and moist mucous membranes Teeth and gingiva: dentition normal Throat: Yes oropharynx normal Eyes Pupils: Equal, round and reactive pupils present and Pupil accommodation reflex normal EOM: EOMs intact bilaterally Neck Neck: Yes normal visual inspection, Yes no lymphadenopathy and Yes trachea midline Thyroid: Thyroid normal Carotids: no bruits Lymphatic: no lymphadenopathy noted Chest Chest palpation & inspection: normal inspection of the chest Resp Effort & Inspection: normal respiratory effort Auscultation: clear to auscultation bilaterally Cardio Rate: regular rate Rhythm: regular rhythm Heart sounds: S1 normal heart sound present, S2 normal heart sound present, no gallops, no murmurs and no rubs Bruits: no abdominal aortic bruits and no carotid bruits GI Palpation (GI): No Abdominal aortic bruit present, Soft to palpation, nontender, No hepatosplenomegaly present and No Rebound tenderness present Auscultation: normal bowel sounds General: Yes no CVA tenderness Back/Spine/Pelvis Back: no CVA tenderness Cervical Spine: cervical ROM normal and No Cervical spine tenderness Thoracic/Lumbar Spine: thoraco-lumbar ROM normal, No pain with thoraco-lumbar ROM, No thoracic spinal tenderness and No lumbar spinal tenderness Skin General: warm and dry. Normal skin color. Normal skin turgor Lesions: no lesions Rashes: no rashes Trauma: no lacerations or abrasions Wounds: no wounds Nails: normal Neuro General: patient oriented x3, gait normal and CN's II-XI intact bilaterally Cranial nerves: Yes Equal, round and reactive pupils present Cognition (Neuro): normal cognition Gait exam (Neuro): Normal gait present Motor exam (neuro): 5/5 motor strength present throughout Sensory Exam: No Sensory deficit (Neuro) Deep tendon reflexes (DTR's): Right patellar reflex intensity grade: 2+ and Left patellar reflex intensity grade: 2+ Extrem General: Yes normal to inspection, No edema and No calf tenderness Psych Appearance: grossly normal Affect: normal affect Attitude: cooperative Thought process: Normal thought process present Assessment and Plan Assessment & Plan (1) Normal physical examination, routine: Code(s): Z00.00 - Encounter for general adult medical examination without abnormal findings Plan: No significant physical restrictions or limitations noted Continue current treatment regimen Advise to establish with a dentist for routine dental care Continue to follow up nephrology and cardiology as planned Follow up in 3 months for HTN or return sooner with symptoms or concerns Verbalized understanding and agreed with the plan (2) Colon cancer screening: Code(s): Z12.11 - Encounter for screening for malignant neoplasm of colon Plan: He is unsure whether he has ever had a colonoscopy Refered to [facility] gastroentrology for a colonoscopy (3) Vaccine counseling: Code(s): Z71.85 - Encounter for immunization safety counseling Plan: He has not been vaccinated for the shingles, PNA, and the flu. He decline the flu vaccine Instructed on the importance of vaccinations and encouraged to get vaccinated for shingles, pneumonia, and influenza. He may requests the vaccines form the local pharmacy Verbalized understanding and agreed with the plan (4) Decreased hearing of both ears: Code(s): H91.93 - Unspecified hearing loss, bilateral Plan: Reports diminished hearing of both ears for the past 1 month Normal ear exam Referred to audiology Follow-up with worsening or new symptoms Verbalized understanding and agreed with treatment plan (5) Laboratory tests ordered as part of a complete physical exam (CPE): Code(s): Z00.00 - Encounter for general adult medical examination without abnormal findings Plan: Fasting labs ordered as part of a complete physical exam. Advised to fast for at least 10 hours before getting labs drawn. May drink water Verbalized understanding and agreed with treatment plan. Orders: Orders Complete Blood Count Auto Diff Today Z00.00 - Encounter for general adult medical examination without abnormal findings Comprehensive [place]. Panel Fast Today Z00.00 - Encounter for general adult medical examination without abnormal findings UA CC w/rflx Micro + Cult Today Z00.00 - Encounter for general adult medical examination without abnormal findings Lipid Panel Today Z00.00 - Encounter for general adult medical examination without abnormal findings TSH reflex Free T4 Today Z00.00 - Encounter for general adult medical examination without abnormal findings PSA, Ultra Sensitive Today Z00.00 - Encounter for general adult medical examination without abnormal findings Referrals Audiology Referral H91.93 - Unspecified hearing loss, bilateral Gastroenterology Referral Z12.11 - Encounter for screening for malignant neoplasm of colon Coding Level of Care Code Est Pt Prev Care >65y(85130) Diagnoses Normal physical examination, routine Z00.00 Colon cancer screening Z12.11 Vaccine counseling Z71.85 Decreased hearing of both ears H91.93 Laboratory tests ordered as part of a complete physical exam (CPE) Z00.00 Additional Codes LUKASZ-7 Assessment Billing - LUKASZ-7 Assessment Tool: LUKASZ-7 Assessment 43210 ([id number])
[2023-08-24 16:18] VITALS: BP 118/60; PULSE 69; RESP 16; TEMP 37; O2SAT 97; BMI 26.5
== END 2023-08-24 16:54 | disposition home or self-care (01) ==
PROVIDERS: PCP Nurse Practitioner Family; Visit Provider Nurse Practitioner Family
DX: Z00.00 Encounter for general adult medical examination without abnormal findings (principal); Z12.11 Encounter for screening for malignant neoplasm of colon; Z71.85 Encounter for immunization safety counseling; H91.93 Unspecified hearing loss, bilateral
CPT/HCPCS: 99397

== ENCOUNTER 2023-09-23 15:54 | Outpatient (AMB) | payer MEDICAID, SELFPAY ==
--- NOTE | 2023-09-23 15:56 | HO.NEPHOV ---
Vital Signs 09/23/23 15:57 Height 5 ft 7 in Weight 172 lb BMI 26.9 BP 142/70 H Blood Pressure Location Lt brachial Position Sitting Pulse 75 Pulse Source Pulse Oximeter Pulse Oximetry (%) 98 Oxygen Delivery Method Room Air Intake Visit Reasons: September/ Confirmed Public Area Supervisor Required: Yes Public Area Supervisor Name: Rubina [id number] Accompanied by: Son Allergies No Known Allergies Allergy (Verified 09/23/23 16:02) HPI Comments Details: 77-year-old Creole speaking male, accompanied by his son, presents for hypertension follow-upHe notes that he has been taking amlodipine, Metoprolol, and Spironolactone-HCTZ as prescribed. He ran out of Spironolactone-HCTZ His son states that his home blood pressure readings are usually in the 130s-140s/70s-80s He has a follow up appointment with Nephrology early July No acute symptoms at this time Interpretation by the patient's son per patient's preference 07/13/23 Doing well; BP well controlled ;Did not undergo cT scan yet 09/23/23 Accompanied by family Interpretor service was used Apparently, Radiology tried to reach him several times to schedule CT scan and due to language barrier, this has not been done. [facility] Medical History No pertinent family history Prostate troubles High blood pressure Surgical History History of hernia repair Social History Housing: House Patient Tobacco Use Status: Never used Tobacco e-Cigarette/Vaping Use: Never Used Second Hand Smoke Exposure: No service: No Current occupational status: retired Cognitive needs: No Hearing needs: No Vision needs: No Physical Exam Vital Signs: Last Vital Signs Pulse 75 09/23/23 15:57 BP 142/70 H 09/23/23 15:57 Pulse Ox 98 09/23/23 15:57 Oxygen Delivery Method Room Air 09/23/23 15:57 BMI result Body Mass Index 26.9 Results Reviewed Nephrology Results: Sodium 137 mmol/L (135-145) 04/06/23 Potassium 3.5 mmol/L (3.3-5.1) 04/06/23 Chloride 104 mmol/L (96-108) 04/06/23 Carbon Dioxide 27 mmol/L (22-29) 04/06/23 BUN 14 mg/dL (9-16) 04/06/23 Creatinine 1.06 mg/dL (0.5-1.4) 04/06/23 Calcium 9.0 mg/dL (8.4-10.2) 04/06/23 Assessment & Plan Assessment & Plan (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 Plasma aldosterone level was not elevated but the plasma aldosterone/renin ratio was elevated at 85.7. It is unclear as to what medication he was on at that time. He had borderline hypokalemia. But no alkalosis. workup for possible hyperaldosteronism. Unlikely to be renal artery stenosis with a suppressed renin level. PRA is suppressed at 0.17 K and tCO2 are normal BP is well controlled No change in meds today It is essential to keep him on a low salt diet Discussed with patient's family Will obtain CT of [place] - Reordered Had a lenghty discussion , through the interpretor, and explained the importance of the work up Needs blood test today to check creatinine and Potassium Orders: Orders Basic Metabolic Panel 09/23/23 E26.09 - Other primary hyperaldosteronism CT abdomen pelvis wo IV con 09/23/23 I95.9 - Hypotension, unspecified Coding Level of Care Code Est Pt Level 4 (79666) Diagnoses Primary aldosteronism E26.09
[2023-09-23 15:57] VITALS: BP 142/70; PULSE 75; O2SAT 98; BMI 26.9
== END 2023-09-23 16:15 | disposition home or self-care (01) ==
PROVIDERS: PCP Nurse Practitioner Family; Visit Provider Internal Medicine Hypertension Specialist
DX: E26.09 Other primary hyperaldosteronism (principal)
CPT/HCPCS: 99214

== ENCOUNTER → 2023-09-23 15:54 | Outpatient (BNVA) | payer MEDICAID, SELFPAY | PROVIDERS: PCP Nurse Practitioner Family; Visit Provider Internal Medicine Hypertension Specialist | DX: E26.09 Other primary hyperaldosteronism (principal) | CPT/HCPCS: 99212 ==

== ENCOUNTER 2023-11-03 13:58 | Outpatient (REF) | payer MEDICAID, SELFPAY ==
--- NOTE | ~2023-11-03 | CT_ITS ---
EXAMINATION: CT ABDOMEN AND PELVIS WITH CONTRAST CLINICAL INFORMATION: Hypotension. COMPARISON: None available. TECHNIQUE: Multidetector volumetric images were obtained from the superior aspect of the liver through the pubic symphysis following administration 85 mL of Omnipaque 350 intravenous contrast. Sagittal and coronal reformatted images were obtained on the technologist's workstation. Oral contrast: No. This CT examination was performed using dose optimization techniques as appropriate, variously including the following: *Automated exposure control *Adjustment of mA and/or kV according to patient size (this includes techniques or standardized protocols for targeted exams where dose is matched to indication/reason for exam; i.e. extremities or head) *Use of iterative reconstruction technique DLP: 392 mGy-cm FINDINGS: LUNG BASES: The heart is enlarged. Marked artifact obscures detail at the lung bases. Right middle lobe atelectasis is seen. No pleural effusions or large consolidations. LIVER, GALLBLADDER, AND BILIARY TREE: The liver is normal in size, shape, and attenuation. No focal hepatic lesion or biliary ductal dilatation is present. The gallbladder is unremarkable with no evidence of radiopaque gallstones, gallbladder wall thickening, or obvious pericholecystic inflammatory changes. PANCREAS: Unremarkable. SPLEEN: Unremarkable. ADRENAL GLANDS: Unremarkable. KIDNEYS AND URETERS: The kidneys are normal in size, shape, and attenuation. No hydronephrosis, hydroureter, or calculi seen. No perinephric stranding. BLADDER: Unremarkable. GASTROINTESTINAL TRACT: The small and large bowel are unremarkable. The appendix is unremarkable. ABDOMINAL WALL: No significant hernia is appreciated. Tiny femoral hernias are seen containing only fat. LYMPH NODES: Normal. VASCULAR: Unremarkable. PELVIC VISCERA: Mild BPH. Seminal vesicles appear normal. OSSEOUS STRUCTURES: Unremarkable. CT/CT abdomen pelvis w IV con IMPRESSION: A cause for the patient's hypotension has not been found. Incidental findings as described above. Fleischner guidelines were followed.
[2023-11-03 14:35] LABS: Anion Gap 10 (12-20); Blood Urea Nitrogen 21 mg/dL (9-16); Calcium 9.6 mg/dL (8.4-10.2); Carbon Dioxide 27 mmol/L (22-29); Chloride 104 mmol/L (96-108); Estimated Glomerular Filt Rate 45; Potassium 4.4 mmol/L (3.3-5.1); Sodium 137 mmol/L (135-145)
[2023-11-03] MEDS: iohexoL 350 MG/ML 100 ML INFUS..BTL 85 ML IV (15:12)
== END 2023-11-03 13:59 | disposition home or self-care (01) ==
LOC: HO.CT 13:58
PROVIDERS: Absent Provider Nurse Practitioner Family; PCP Nurse Practitioner Family; Visit Provider Internal Medicine Hypertension Specialist
DX: E26.09 Other primary hyperaldosteronism (principal); I95.9 Hypotension, unspecified
CPT/HCPCS: 36415; 74177; 80051; 82310; 82565; 84520; Q9967

== ENCOUNTER 2023-11-30 15:56 | Outpatient (AMB) | payer MEDICAID, SELFPAY ==
--- NOTE | 2023-11-30 15:57 | MHC.PC.OV ---
Vital Signs 11/30/23 16:01 11/30/23 16:14 Height 5 ft 7 in Weight 172 lb 2 oz BMI 27.0 BP 134/62 130/70 Blood Pressure Location Rt brachial Lt brachial Position Sitting Sitting Respiration 16 Pulse 83 Pulse Source Pulse Oximeter Temp 98.0 F Temp Source Oral Pulse Oximetry (%) 98 Oxygen Delivery Method Room Air Intake Visit Reasons: 3 mos HTN, labs Intake Note: patient here for 3 months follow up for HTN and labs. Rotary Driller Required: No Accompanied by: Daughter Allergies No Known Allergies Allergy (Verified 11/30/23 16:10) Medication List - Last Reconciled 11/30/23 by Mark Rodriguez CNP amlodipine 10 mg PO DAILY 30 days metoprolol tartrate 100 mg PO BID 30 days spironolacton-hydrochlorothiaz 25-25 mg 1 tab PO DAILY 90 days Tobacco use date assessed: 11/30/23 Fall risk assessment: No Falls in past year Dental Screening Dental Screen Date: 11/30/23 Did you have a dental visit in the last 12 months?: Yes Did you have a dental problem in the last 6 months where you did not have access to dental care?: No Was dental information given to patient?: Patient has dentist HPI HPI Comments History of Present Illness Details 77-year-old male, accompanied by his [id number], presents for hypertension and review of recent lab results follow-up He is on amlodipine 10 mg daily and spironolactone-hydrochlorothiazide 25-25 mg daily which he admits to taking as prescribed without adverse reactions Metoprolol 100 mg twice daily was held by Nephrology at the end of last year. However, the patient and his [id number] note that he never stopped the medication and has been has been taking 100 mg daily He did not get lab work done He offers no complaints and denies acute symptoms at this time He is followed by [facility] nephrology and cardiology for hypertension. REPLACED BY [facility] Medical History No pertinent family history Prostate troubles High blood pressure Surgical History History of hernia repair Social History Housing: House Patient Tobacco Use Status: Never used Tobacco e-Cigarette/Vaping Use: Never Used Second Hand Smoke Exposure: No service: No Current occupational status: retired Cognitive needs: No Hearing needs: No Vision needs: No Questionnaire Thrive Questionnaire Date Thrive assessed: 08/24/23 LUKASZ-7 AMB Questionnaire LUKASZ-7 Date LUKASZ - 7 assessed: 08/24/23 Source: Developed by Drs. Alex Fung, Luma Gan, Gideon Rolon and colleagues, with an educational elder from [employer]. Review of Systems Const Details: Const Denies chills, Denies fatigue, Denies fever(s), Denies headache(s) and Denies weakness ENT Denies dizziness and Denies headache(s) Card Denies chest pain, Denies lightheadedness, Denies dyspnea and Denies other (Palpitations) Resp Denies cough, Denies dyspnea, Denies wheezing and Denies other ( shortness of breath) GI Denies abdominal pain, Denies melena, Denies hematochezia, Denies change in bowel habits, Denies dyspepsia and Denies nausea Denies hematuria and Denies dysuria Musc Denies abnormal gait, Denies myalgias, Denies arthralgias, Denies numbness and Denies tingling Skin/Breast Denies rash, Denies unusual bruising and Denies wounds Neuro Denies abnormal gait, Denies dizziness, Denies headache(s), Denies memory loss, Denies numbness, Denies Sensory deficit (Neuro), Denies tingling and Denies weakness Psych Denies anxiety, Denies depression, Denies memory loss Endo Denies cold intolerance, Denies fatigue, Denies heat intolerance, Denies polydipsia and Denies polyuria Aller/Immun Denies wheezing Physical exam (Primary Care) Vital Signs: Last Vital Signs Temp 98.0 F 11/30/23 16:01 Pulse 83 11/30/23 16:01 Resp 16 11/30/23 16:01 BP 134/62 11/30/23 16:01 Pulse Ox 98 11/30/23 16:01 Oxygen Delivery Method Room Air 11/30/23 16:01 BMI result Body Mass Index 27.0 Tobacco/Smoking Status: Tobacco use Status Tobacco use date assessed 11/30/23 11/30/23 16:01 Patient Tobacco Use Status Never used Tobacco 11/30/23 15:59 e-Cigarette/Vaping Use Never Used 11/30/23 15:59 Thrive Assessment: Date of Thrive Assessment Date Thrive assessed 08/24/23 11/30/23 15:59 Const Other: General: no acute distress and well developed Nutritional Appearance: well nourished Orientation/consciousness: patient oriented x3 HENMT Head: Yes normocephalic and Yes atraumatic Eyes General: appearance normal, both eyes and all related structures Pupils: Equal, round and reactive pupils present EOM: EOMs intact bilaterally Resp Effort & Inspection: normal respiratory effort Auscultation: clear to auscultation bilaterally Cardio Rate: regular rate Rhythm: regular rhythm Heart sounds: S1 normal heart sound present, S2 normal heart sound present, no gallops, no murmurs and no rubs GI Palpation (GI): No Abdominal aortic bruit present, Soft to palpation, nontender, No hepatosplenomegaly present and No Rebound tenderness present Auscultation: normal bowel sounds General: Yes no CVA tenderness Back/Spine/Pelvis Back: no CVA tenderness Cervical Spine: cervical ROM normal and No Cervical spine tenderness Thoracic/Lumbar Spine: thoraco-lumbar ROM normal, No pain with thoraco-lumbar ROM, No thoracic spinal tenderness and No lumbar spinal tenderness Extrem General: Yes normal to inspection, No edema and No calf tenderness Skin General: warm and dry. Normal skin color. Normal skin turgor Neuro General: patient oriented x3, gait normal and no focal neuro deficit Cranial nerves: Yes Equal, round and reactive pupils present Cognition (Neuro): normal cognition Gait exam (Neuro): Normal gait present Sensory Exam: No Sensory deficit (Neuro) Psych Appearance: grossly normal Affect: normal affect Attitude: cooperative Thought process: Normal thought process present Assessment and Plan Assessment & Plan (1) Hypotension: Code(s): I95.9 - Hypotension, unspecified Plan: Resting blood pressure is 130/70, within goal of less than 140/90 Continue current treatment regimen Will send a notification message to his pure pak machine operator regarding the dose of metoprolol he has been taking in addition to his other antihypertensives Low-sodium diet and routine exercise encouraged Encouraged to get lab work done before his next visit Continue follow-up with Cardiology and Nephrology Follow-up in 3 months or sooner with symptoms or concerns Verbalized understanding and agreed with the treatment plan Coding Level of Care Code Est Pt Level 3 (38217) Diagnoses Hypotension I95.9
[2023-11-30 16:01] VITALS: BP 134/62; PULSE 83; RESP 16; TEMP 36.7; O2SAT 98; BMI 27.0
[2023-11-30 16:14] VITALS: BP 130/70
== END 2023-11-30 16:23 | disposition home or self-care (01) ==
PROVIDERS: PCP Nurse Practitioner Family; Visit Provider Nurse Practitioner Family
DX: I95.9 Hypotension, unspecified (principal)
CPT/HCPCS: 99213

== ENCOUNTER 2023-12-30 15:48 | Outpatient (AMB) | payer MEDICAID, SELFPAY ==
--- NOTE | 2023-12-30 15:50 | HO.NEPHOV ---
Vital Signs 12/30/23 15:51 12/30/23 16:04 Height 5 ft 7 in Weight 175 lb BMI 27.4 BP 142/62 H 140/70 H Blood Pressure Location Rt brachial Lt brachial Position Sitting Sitting Pulse 92 Pulse Source Pulse Oximeter Pulse Oximetry (%) 96 Oxygen Delivery Method Room Air Intake Visit Reasons: Primary aldosteronism/ 3 MO FU/ Conf Skirt Trimmer Required: Yes Skirt Trimmer Name: [id number] Duy Accompanied by: Son Allergies No Known Allergies Allergy (Verified 12/30/23 15:54) Medication List - Last Reconciled 12/30/23 by Maykel Burnett MD amlodipine 10 mg PO DAILY 30 days metoprolol tartrate 100 mg PO .QD 30 days spironolacton-hydrochlorothiaz 25-25 mg 1 tab PO DAILY 90 days HPI Comments Details: 77-year-old Creole speaking male, accompanied by his son, presents for hypertension follow-upHe notes that he has been taking amlodipine, Metoprolol, and Spironolactone-HCTZ as prescribed. He ran out of Spironolactone-HCTZ His son states that his home blood pressure readings are usually in the 130s-140s/70s-80s He has a follow up appointment with Nephrology early July No acute symptoms at this time Interpretation by the patient's son per patient's preference 07/13/23 Doing well; BP well controlled ;Did not undergo cT scan yet 09/23/23 Accompanied by family Interpretor service was used No new issues [facility] Medical History No pertinent family history Prostate troubles High blood pressure Surgical History History of hernia repair Social History Housing: House Patient Tobacco Use Status: Never used Tobacco e-Cigarette/Vaping Use: Never Used Second Hand Smoke Exposure: No service: No Current occupational status: retired Cognitive needs: No Hearing needs: No Vision needs: No Physical Exam Vital Signs: Last Vital Signs Pulse 92 12/30/23 15:51 BP 142/62 H 12/30/23 15:51 Pulse Ox 96 12/30/23 15:51 Oxygen Delivery Method Room Air 12/30/23 15:51 BMI result Body Mass Index 27.4 Const General: comfortable; No acute distress Orientation/consciousness: patient oriented x3 Eyes General: appearance normal, both eyes and all related structures Visual Olson: normal visual olson by confrontation Neck Neck: Yes supple and Yes no JVD Resp Effort & Inspection: normal respiratory effort and respiratory effort not decreased Auscultation: rhonchi Cardio Palpation: no palpable S3 and no palpable S4 Heart sounds: no rubs GI Inspection: Yes normal to inspection Palpation (GI): Soft to palpation Percussion: Yes normal to percussion Auscultation: normal bowel sounds General: Yes no CVA tenderness Back/Spine/Pelvis Back: no CVA tenderness Skin General skin exam: no petechiae and no purpura Neuro General: patient oriented x3 and no focal motor deficits Extrem General: No clubbing and No edema Results Reviewed Nephrology Results: Sodium 137 mmol/L (135-145) 11/03/23 Potassium 4.4 mmol/L (3.3-5.1) 11/03/23 Chloride 104 mmol/L (96-108) 11/03/23 Carbon Dioxide 27 mmol/L (22-29) 11/03/23 BUN 21 mg/dL (9-16) H 11/03/23 Creatinine 1.53 mg/dL (0.5-1.4) H 11/03/23 Calcium 9.6 mg/dL (8.4-10.2) 11/03/23 Assessment & Plan Assessment & Plan (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 Plasma aldosterone level was not elevated but the plasma aldosterone/renin ratio was elevated at 85.7. It is unclear as to what medication he was on at that time. He had borderline hypokalemia. But no alkalosis. Had workup for possible hyperaldosteronism. Unlikely to be renal artery stenosis with a suppressed renin level. PRA is suppressed at 0.17 K and tCO2 are normal BP is well controlled No change in meds today It is essential to keep him on a low salt diet Discussed with patient's family CT of [facility] -Normal Bump in creatinine ? hypoperfusion Will recheck TODAY Orders: Orders Basic Metabolic Panel Today E26.09 - Other primary hyperaldosteronism Coding Level of Care Code Est Pt Level 4 (20431) Diagnoses Primary aldosteronism E26.09
[2023-12-30 15:51] VITALS: BP 142/62; PULSE 92; O2SAT 96; BMI 27.4
[2023-12-30 16:04] VITALS: BP 140/70
== END 2023-12-30 16:09 | disposition home or self-care (01) ==
PROVIDERS: PCP Nurse Practitioner Family; Visit Provider Internal Medicine Hypertension Specialist
DX: E26.09 Other primary hyperaldosteronism (principal)
CPT/HCPCS: 99214

== ENCOUNTER → 2023-12-30 15:48 | Outpatient (BNVA) | payer MEDICAID, SELFPAY | PROVIDERS: PCP Nurse Practitioner Family; Visit Provider Internal Medicine Hypertension Specialist | DX: I10 Essential (primary) hypertension (principal); E26.09 Other primary hyperaldosteronism | CPT/HCPCS: 99212 ==

== ENCOUNTER 2024-01-07 10:14 | Outpatient (REF) | payer MEDICAID, SELFPAY ==
[2024-01-07 14:43] LABS: Appearance Urine Clear; Color Urine Yellow; Glucose Urine UA Negative (Negative); Leukocyte Esterase Urine Negative (Negative); Nitrite Urine Negative (Negative); PH 5.5 (5.0-9.0); Urine Blood Negative (Negative); Urine Ketones Negative (Negative); Urine Protein Negative (Neg-Trace)
[2024-01-07 14:51] LABS: MANUAL DIFF FLAG NO
[2024-01-07 14:55] LABS: Basophils Percent Auto 0.6 % (0-2); Eosinophils Absolute Auto 0.2 X10*3/uL (0.0-0.4); Eosinophils Percent Auto 2.4 % (0-4); Hematocrit 38.2 % (42.0-52.0); Hemoglobin 12.3 g/dl (14.0-18.0); Imm Gran Abs Auto 0.02 X10*3/uL (0.00-0.03); Imm Gran Pct Auto 0.3 % (0.0-0.4); Lymphocytes Absolute Auto 1.9 X10*3/uL (1.2-4.9); Lymphocytes Percent Auto 30.6 % (20-40); Mean Corpuscular HGB Conc 32.2 g/dl (31.0-36.0); Mean Corpuscular Hemoglobin 30.2 pg (27.0-33.0); Mean Corpuscular Volume 93.9 fL (80.0-98.0); Mean Platelet Volume 12.3 fL (9.4-12.4); Monocytes Absolute Auto 0.6 X10*3/uL (0.1-1.2); Monocytes Percent Auto 8.9 % (2-11); Neutrophils Absolute Auto 3.6 x10*3/uL (2.0-8.3); Neutrophils Percent Auto 57.2 % (45-73); Platelet Count 253 X10*3/uL (160-400); Red Blood Count 4.07 X10*6/uL (4.60-5.80); Red Cell Distribution Width 12.1 % (11.0-16.0); White Blood Count 6.3 X10*3/uL (4.8-10.8)
[2024-01-07 15:35] LABS: Alanine Aminotransferase 11 U/L (0-40); Albumin Level 4.1 g/dL (3.5-5.0); Alkaline Phosphatase 82 U/L (39-117); Anion Gap 9 (12-20); Aspartate Amino Transferase 16 U/L (5-37); Bilirubin Total 0.3 mg/dL (0.0-1.0); Blood Urea Nitrogen 17 mg/dL (9-16); Calcium 9.5 mg/dL (8.4-10.2); Carbon Dioxide 28 mmol/L (22-29); Chloride 102 mmol/L (96-108); Cholesterol 185 mg/dL (<200); Estimated Glomerular Filt Rate 53; Glucose Fasting 160 mg/dL (60-99); HDL Cholesterol 38 mg/dL (>40); LDL Cholesterol Calculated 126 mg/dL (<100); Potassium 3.8 mmol/L (3.3-5.1); Sodium 135 mmol/L (135-145); Total Protein 8.3 g/dL (6.5-8.0); Triglycerides 107 mg/dL (<150)
[2024-01-07 15:38] LABS: TSH reflex Free T4 4.41 uIU/mL (0.32-4.0)
[2024-01-07 16:39] LABS: Free T4 (Free Thyroxine) 0.82 ng/dL (0.71-1.85)
[2024-01-15 12:54] LABS: PSA, Ultra Sensitive 0.71 ng/mL
== END 2024-01-07 10:15 | disposition home or self-care (01) ==
LOC: HO.WFDLDS 10:14
PROVIDERS: Referring Provider Internal Medicine Hypertension Specialist; Visit Provider Nurse Practitioner Family
DX: Z00.00 Encounter for general adult medical examination without abnormal findings (principal)
CPT/HCPCS: 36415; 80048; 80053; 80061; 81003; 84153; 84439; 84443; 85025

== ENCOUNTER 2024-03-27 07:47 | Outpatient (REF) | payer MEDICAID, SELFPAY | END 2024-03-27 07:48 | disposition home or self-care (01) | LOC: HO.WFDLDS 07:47 | PROVIDERS: Visit Provider Internal Medicine Hypertension Specialist | DX: Z13.89 Encounter for screening for other disorder (principal) ==

== ENCOUNTER 2024-03-27 07:50 | Outpatient (REF) | payer MEDICAID, SELFPAY ==
[2024-03-27 12:13] LABS: Anion Gap 14 (12-20); Blood Urea Nitrogen 19 mg/dL (9-16); Calcium 9.5 mg/dL (8.4-10.2); Carbon Dioxide 24 mmol/L (22-29); Chloride 106 mmol/L (96-108); Estimated Glomerular Filt Rate 48; Glucose Random 102 mg/dL (60-115); Potassium 3.5 mmol/L (3.3-5.1); Sodium 140 mmol/L (135-145)
== END 2024-03-27 07:51 | disposition home or self-care (01) ==
LOC: HO.WFDLDS 07:50
PROVIDERS: Visit Provider Internal Medicine Hypertension Specialist
DX: E26.09 Other primary hyperaldosteronism (principal)
CPT/HCPCS: 36415; 80048

== ENCOUNTER 2024-03-28 13:39 | Outpatient (AMB) | payer MEDICAID, SELFPAY ==
--- NOTE | 2024-03-28 14:04 | HO.NEPHOV_ITS ---
Vital Signs 03/28/24 14:05 03/28/24 14:16 Height 5 ft 7 in Weight 178 lb BMI 27.9 BP 160/70 H 130/60 Blood Pressure Location Lt brachial Lt brachial Position Sitting Sitting Pulse 86 Pulse Source Pulse Oximeter Pulse Oximetry (%) 95 Oxygen Delivery Method Room Air Intake Visit Reasons: 3 mon follow up/ Unable to reach Legal Paraprofessional Required: Yes Legal Paraprofessional Services: Legal Paraprofessional Offered & Declined (Patient brought his own sign language interpreter ) Allergies No Known Allergies Allergy (Verified 12/30/23 15:54) Medication List - Last Reconciled 03/28/24 by Maykel Burnett MD amlodipine 10 mg PO DAILY 30 days metoprolol tartrate 100 mg PO .QD 30 days spironolacton-hydrochlorothiaz 25-25 mg 1 tab PO DAILY 90 days HPI Comments Details: 77-year-old Creole speaking male, accompanied by his son, presents for hypertension follow-upHe notes that he has been taking amlodipine, Metoprolol, and Spironolactone-HCTZ as prescribed. He ran out of Spironolactone-HCTZ His son states that his home blood pressure readings are usually in the 130s-140s/70s-80s He has a follow up appointment with Nephrology early July No acute symptoms at this time Interpretation by the patient's son per patient's preference 07/13/23 Doing well; BP well controlled ;Did not undergo cT scan yet 09/23/23 Accompanied by family Interpretor service was used No new issues [facility] Medical History No pertinent family history Prostate troubles High blood pressure Surgical History History of hernia repair Social History Housing: House Patient Tobacco Use Status: Never used Tobacco e-Cigarette/Vaping Use: Never Used Second Hand Smoke Exposure: No service: No Current occupational status: retired Cognitive needs: No Hearing needs: No Vision needs: No Physical Exam Vital Signs: Last Vital Signs Pulse 86 03/28/24 14:05 BP 160/70 H 03/28/24 14:05 Pulse Ox 95 03/28/24 14:05 Oxygen Delivery Method Room Air 03/28/24 14:05 BMI result Body Mass Index 27.9 Results Reviewed Nephrology Results: Hgb 12.3 g/dl (14.0-18.0) L 01/07/24 WBC 6.3 X10*3/uL (4.8-10.8) 01/07/24 Plt Count 253 X10*3/uL (160-400) 01/07/24 Sodium 140 mmol/L (135-145) 03/27/24 Potassium 3.5 mmol/L (3.3-5.1) 03/27/24 Chloride 106 mmol/L (96-108) 03/27/24 Carbon Dioxide 24 mmol/L (22-29) 03/27/24 BUN 19 mg/dL (9-16) H 03/27/24 Creatinine 1.44 mg/dL (0.5-1.4) H 03/27/24 Calcium 9.5 mg/dL (8.4-10.2) 03/27/24 Urine Protein Negative mg/dL (Neg-Trace) 01/07/24 Assessment & Plan Assessment & Plan (1) High blood pressure: Code(s): I10 - Essential (primary) hypertension Category: Medical Qualifiers: Hypertension type: primary hypertension Qualified Code(s): I10 - Essential (primary) hypertension Plan Elderly man with longstanding complicated history of hypertension has been referred for evaluation of hypertension and to rule out hyperaldosteronism. Plasma aldosterone level was not elevated but the plasma aldosterone/renin ratio was elevated at 85.7. It is unclear as to what medication he was on at that time. He had borderline hypokalemia. But no alkalosis. Had workup for possible hyperaldosteronism. Unlikely to be renal artery stenosis with a suppressed renin level. PRA is suppressed at 0.17 K and tCO2 are normal BP is well controlled No change in meds today It is essential to keep him on a low salt diet Discussed with patient's family CT of [facility] -Normal Bump in creatinine due to hypoperfusion Follow closely Orders: Orders Basic Metabolic Panel 3 Months I10 - Essential (primary) hypertension Coding Level of Care Code Est Pt Level 4 (12518) Diagnoses Primary hypertension I10 Hypertension type: primary hypertension
[2024-03-28 14:05] VITALS: BP 160/70; PULSE 86; O2SAT 95; BMI 27.9
[2024-03-28 14:16] VITALS: BP 130/60
== END 2024-03-28 14:20 | disposition home or self-care (01) ==
PROVIDERS: PCP Nurse Practitioner Family; Visit Provider Internal Medicine Hypertension Specialist
DX: I10 Essential (primary) hypertension (principal)
CPT/HCPCS: 99214

== ENCOUNTER → 2024-03-28 13:39 | Outpatient (BNVA) | payer MEDICAID, SELFPAY | PROVIDERS: PCP Nurse Practitioner Family; Visit Provider Internal Medicine Hypertension Specialist | DX: I10 Essential (primary) hypertension (principal) | CPT/HCPCS: 99212 ==

== ENCOUNTER 2024-04-05 10:46 | Outpatient (AMB) | payer MEDICAID, SELFPAY ==
[2024-04-05 10:56] VITALS: BP 134/70; PULSE 81; BMI 27.6
--- NOTE | 2024-04-05 10:56 | MHC.OFFVIS ---
Vital Signs 04/05/24 10:56 Height 5 ft 7 in Weight 176 lb 5.917 oz BMI 27.6 BP 134/70 Blood Pressure Location Lt brachial Position Sitting Pulse 81 Intake Visit Reasons: 6 mth f/up Intake Note: 6 mo f/u Log Driver Required: Yes Log Driver Services: Log Driver Offered & Declined Log Driver Name: Son Accompanied by: Self / Same As Patient Allergies No Known Allergies Allergy (Verified 12/30/23 15:54) Medication List - Last Reconciled 04/05/24 by Chris Vargas MD amlodipine 10 mg PO DAILY 30 days metoprolol tartrate 100 mg PO .QD 30 days spironolacton-hydrochlorothiaz 25-25 mg 1 tab PO DAILY 90 days HPI Comments Details: Nery comes for follow-up. History was obtained with help of his son over the telephone. Patient speaks Creole. Currently doing well with his blood pressure control on current medications. Although metoprolol formulation is a short-acting 1 which she takes once a day. Patient is sitting in his blood pressure much better controlled. He exercise and maintains activity level. No exertional chest pain or shortness of breath. No heart failure symptoms. Watching the salt in his diet. [facility] Medical History (Updated 04/05/24 @ 11:14 by Chris Vargas MD) No pertinent family history Prostate troubles Surgical History History of hernia repair Social History Housing: House Patient Tobacco Use Status: Never used Tobacco e-Cigarette/Vaping Use: Never Used Second Hand Smoke Exposure: No service: No Current occupational status: retired Cognitive needs: No Hearing needs: No Vision needs: No Review of Systems Const Denies chills, Denies fatigue, Denies fever(s), Denies weight gain and Denies weight loss ENT Denies dizziness Card Denies chest pain, Denies leg edema, Denies lightheadedness, Denies palpitations, Denies dyspnea on exertion, Denies orthopnea and Denies other Resp Denies cough and Denies dyspnea on exertion GI Denies hematochezia and Denies change in stool character Musc Denies abnormal gait, Denies muscle weakness, Denies numbness, Denies radiating pain into limb and Denies tingling Neuro Denies abnormal gait, Denies dizziness, Denies numbness and Denies tingling Endo Denies fatigue and Denies palpitations Physical Exam Vital Signs: Last Vital Signs Pulse 81 04/05/24 10:56 BP 134/70 04/05/24 10:56 BMI result Body Mass Index 27.6 Const General: cooperative, healthy appearing, comfortable and no acute distress Orientation/consciousness: patient oriented x3 Neck Neck: Yes normal visual inspection and Yes no JVD Resp Effort & Inspection: normal respiratory effort Auscultation: clear to auscultation bilaterally, no rales, no rhonchi and no wheezes Cardio Jugular venous distension: no JVD Rate: regular rate Rhythm: regular rhythm Heart sounds: S1 normal heart sound present, S2 normal heart sound present, no murmurs and no rubs Neuro General: patient oriented x3 Extrem General: Yes normal to inspection and No no pedal edema Psych Appearance: grossly normal Mental Status: mental status grossly normal Speech and movement: Normal speech and movement present Office Procedures EKG Details: EKG shows normal sinus rhythm with nonspecific T-wave changes [id number], Complete Assessment & Plan Assessment & Plan (1) High blood pressure: Code(s): I10 - Essential (primary) hypertension Category: Medical Qualifiers: Hypertension type: primary hypertension Qualified Code(s): I10 - Essential (primary) hypertension Plan: Difficult to control high blood pressure currently well optimized with suggestive of primary aldosteronism. Clinically currently on spironolactone therapy as well as amlodipine and hydrochlorothiazide. Blood pressure is well optimized. No clinical signs or symptoms of heart failure. I have change the formulation of metoprolol to long-acting for appropriate dosing. Discussed with him about importance of compliance with medications. He said he was compliant. Also discussed about low-salt diet. He understands agrees. Advised to maintain activity level as tolerated. Follow up in the clinic in 1 year's time, sooner p.r.n.. Thank you for allowing me to partake in his care Medications: New metoprolol succinate ER (Toprol XL) 100 mg PO DAILY 30 tabs 11RF Discontinued metoprolol tartrate Discontinued Reason: Doctor's Order 100 mg PO .QD 30 days 30 tabs 1RF Coding Level of Care Code Est Pt Level 4 (74034) Complex EM visit Add On G2211 Diagnoses Primary hypertension I10 Hypertension type: primary hypertension CPT Codes EKG - CPT: 84284-[id number], Complete ([id number])
== END 2024-04-05 11:12 | disposition home or self-care (01) ==
PROVIDERS: PCP Nurse Practitioner Family; Visit Provider Internal Medicine Cardiovascular Disease
DX: I10 Essential (primary) hypertension (principal)
CPT/HCPCS: 93010; 99214

== ENCOUNTER → 2024-04-05 10:46 | Outpatient (BNVA) | payer MEDICAID, SELFPAY | PROVIDERS: PCP Nurse Practitioner Family; Visit Provider Internal Medicine Cardiovascular Disease | DX: I10 Essential (primary) hypertension (principal); R94.31 Abnormal electrocardiogram [ECG] [EKG] | CPT/HCPCS: 93005; 99212 ==

== ENCOUNTER 2024-07-13 11:18 | Outpatient (AMB) | payer MEDICAID, SELFPAY ==
[2024-07-13 11:19] VITALS: BP 154/76; PULSE 90; O2SAT 98; BMI 29.0
--- NOTE | 2024-07-13 11:19 | HO.NEPHOV_ITS ---
Vital Signs 07/13/24 11:19 07/13/24 11:38 Height 5 ft 7 in Weight 185 lb BMI 29.0 BP 154/76 H 136/80 Blood Pressure Location Rt brachial Rt brachial Position Sitting Sitting Pulse 90 Pulse Source Pulse Oximeter Pulse Oximetry (%) 98 Oxygen Delivery Method Room Air Intake Visit Reasons: High blood pressure/ Conf Mini Baccarat Dealer Required: Yes Mini Baccarat Dealer Name: Alfred [id number] Allergies No Known Allergies Allergy (Verified 07/13/24 11:24) Medication List - Last Reconciled 07/13/24 by Maykel Burnett MD amlodipine 10 mg PO DAILY 30 days metoprolol succinate ER (Toprol XL) 100 mg PO DAILY spironolacton-hydrochlorothiaz 25-25 mg 1 tab PO DAILY 90 days HPI Comments Details: 77-year-old Creole speaking male, accompanied by his son, presents for hypertension follow-upHe notes that he has been taking amlodipine, Metoprolol, and Spironolactone-HCTZ as prescribed. He ran out of Spironolactone-HCTZ His son states that his home blood pressure readings are usually in the 130s-140s/70s-80s He has a follow up appointment with Nephrology early July No acute symptoms at this time Interpretation by the patient's son per patient's preference 07/13/23 Doing well; BP well controlled ;Did not undergo cT scan yet 09/23/23 Accompanied by family Interpretor service was used No new issues 07/13/2024. Here for follow-up. Seems compliant with his medications. Mini Baccarat Dealer service was used. No specific complaints today. [facility] Medical History (Updated 07/13/24 @ 11:37 by Maykel Burnett MD) No pertinent family history Prostate troubles Surgical History History of hernia repair Social History Housing: House Patient Tobacco Use Status: Never used Tobacco e-Cigarette/Vaping Use: Never Used Second Hand Smoke Exposure: No service: No Current occupational status: retired Cognitive needs: No Hearing needs: No Vision needs: No Physical Exam Vital Signs: Last Vital Signs Pulse 90 07/13/24 11:19 BP 136/80 07/13/24 11:38 Pulse Ox 98 07/13/24 11:19 Oxygen Delivery Method Room Air 07/13/24 11:19 BMI result Body Mass Index 29.0 Const General: comfortable; No acute distress Orientation/consciousness: patient oriented x3 Eyes General: appearance normal, both eyes and all related structures Visual Olson: normal visual olson by confrontation Neck Neck: Yes supple and Yes no JVD Resp Effort & Inspection: normal respiratory effort and respiratory effort not decreased Auscultation: rhonchi Cardio Palpation: no palpable S3 and no palpable S4 Heart sounds: no rubs GI Inspection: Yes normal to inspection Palpation (GI): Soft to palpation Percussion: Yes normal to percussion Auscultation: normal bowel sounds General: Yes no CVA tenderness Back/Spine/Pelvis Back: no CVA tenderness Skin General skin exam: no petechiae and no purpura Neuro General: patient oriented x3 and no focal motor deficits Extrem General: No clubbing and No edema Results Reviewed Nephrology Results: Hgb 12.3 g/dl (14.0-18.0) L 01/07/24 WBC 6.3 X10*3/uL (4.8-10.8) 01/07/24 Plt Count 253 X10*3/uL (160-400) 01/07/24 Sodium 140 mmol/L (135-145) 03/27/24 Potassium 3.5 mmol/L (3.3-5.1) 03/27/24 Chloride 106 mmol/L (96-108) 03/27/24 Carbon Dioxide 24 mmol/L (22-29) 03/27/24 BUN 19 mg/dL (9-16) H 03/27/24 Creatinine 1.44 mg/dL (0.5-1.4) H 03/27/24 Calcium 9.5 mg/dL (8.4-10.2) 03/27/24 Urine Protein Negative mg/dL (Neg-Trace) 01/07/24 Assessment & Plan Assessment & Plan (1) CKD (chronic kidney disease): Code(s): N18.9 - Chronic kidney disease, unspecified Category: Medical (2) High blood pressure: Code(s): I10 - Essential (primary) hypertension Category: Medical Qualifiers: Hypertension type: primary hypertension Qualified Code(s): I10 - Essential (primary) hypertension Plan Elderly man with longstanding complicated history of hypertension has been referred for evaluation of hypertension and to rule out hyperaldosteronism. Plasma aldosterone level was not elevated but the plasma aldosterone/renin ratio was elevated at 85.7. It is unclear as to what medication he was on at that time. He had borderline hypokalemia. But no alkalosis. Had workup for possible hyperaldosteronism. Unlikely to be renal artery stenosis with a suppressed renin level. PRA is suppressed at 0.17 K and tCO2 are normal BP is well controlled No change in meds today It is essential to keep him on a low salt diet Discussed with patient's family CT of [place] -Normal Bump in creatinine due to hypoperfusion Probably has underlying hypertensive nephrosclerosis Repeat labs ordered today. Encouraged to increase p.o. fluid intake Orders: Orders Basic Metabolic Panel Today N18.9 - Chronic kidney disease, unspecified Coding Level of Care Code Est Pt Level 4 (27928) Diagnoses CKD (chronic kidney disease) N18.9 Primary hypertension I10 Hypertension type: primary hypertension
[2024-07-13 11:38] VITALS: BP 136/80
== END 2024-07-13 12:14 | disposition home or self-care (01) ==
PROVIDERS: PCP Nurse Practitioner Family; Visit Provider Internal Medicine Hypertension Specialist
DX: I12.9 Hypertensive chronic kidney disease with stage 1 through stage 4 chronic kidney disease, or unspecified chronic kidney disease (principal); N18.9 Chronic kidney disease, unspecified
CPT/HCPCS: 99214

== ENCOUNTER → 2024-07-13 11:18 | Outpatient (BNVA) | payer MEDICAID, SELFPAY | PROVIDERS: PCP Nurse Practitioner Family; Visit Provider Internal Medicine Hypertension Specialist | DX: I12.9 Hypertensive chronic kidney disease with stage 1 through stage 4 chronic kidney disease, or unspecified chronic kidney disease (principal); N18.9 Chronic kidney disease, unspecified | CPT/HCPCS: 99212 ==

== ENCOUNTER 2024-08-02 08:06 | Outpatient (REF) | payer MEDICAID, SELFPAY | END 2024-08-02 08:07 | disposition home or self-care (01) | LOC: HO.WFDLDS 08:06 | PROVIDERS: Visit Provider Internal Medicine Hypertension Specialist | DX: Z13.89 Encounter for screening for other disorder (principal) ==

== ENCOUNTER 2024-09-05 12:24 | Outpatient (AMB) | payer MEDICAID, SELFPAY ==
--- NOTE | 2024-09-05 12:25 | A.OFFPC_ITS ---
Vital Signs 09/05/24 12:30 09/05/24 12:53 Height 5 ft 7 in Weight 182 lb 8 oz BMI 28.6 BP 152/74 H 150/80 H Blood Pressure Location Lt brachial Lt brachial Position Sitting Sitting Respiration 16 Pulse 81 Pulse Source Pulse Oximeter Temp 97.7 F Temp Source Oral Pulse Oximetry (%) 98 Oxygen Delivery Method Room Air Intake Visit Reasons: cpe Intake Note: patient here for CPE Paper Folding Machine Operator Required: Yes Paper Folding Machine Operator Name: Christophe Valerio/ [id number] Information Interpreted: non-clinical & clinical Accompanied by: Son Allergies No Known Allergies Allergy (Verified 09/05/24 12:45) Medication List - Last Reconciled 09/05/24 by Mark Rodriguez CNP amlodipine 10 mg PO DAILY 30 days metoprolol succinate ER (Toprol XL) 100 mg PO DAILY spironolacton-hydrochlorothiaz 25-25 mg 1 tab PO DAILY Tobacco use date assessed: 09/05/24 Fall risk assessment: No Falls in past year Last assessed Fall Risk: 09/05/24 Dental Screening Dental Screen Date: 09/05/24 Did you have a dental visit in the last 12 months?: Yes Did you have a dental problem in the last 6 months where you did not have access to dental care?: No Was dental information given to patient?: Patient has dentist HPI HPI Comments History of Present Illness Details 78-year-old Creaole-speaking male, accom panied by his son, presents for an extended physical exam. He has not been taking amolodipine since he ran out of the medication over a month ago. He has been taking metoprolol and spironolactone-HCTZ as prescribed. Acute issue(s) - None Past Medical History - Hypertension, CKD, subclinical hypothy roidism Social History - Nonsmoker. Does not vape. Does not dri nk alcohol. Denies recreational drug use - Has been making healthy dietary choice s. Exercises routinely. Generally sleep well Health maintenance - He notes that he has never been evalua raul by an eye doctor. Referred to Ophthalmology for routine eye exam - Last dental visit was in March or 2023 - He notes that he was recently vaccinat ed for tetanus. Record not currently available. - He has never been vaccinated for shing les or pneumonia; advised get vaccinated for both at the local pharmacy; verbalized understanding and agreed with the plan - He has never been vaccinated for for c olonoscopy. He was referred [place] [facility] [place] a [place] ago. New referral made to [facility] for a colonoscopy [facility] Interpretation by a professional retail and restaurant associate via telephone/electronic tablet. [facility] Medical History No pertinent family history Prostate troubles Surgical History History of hernia repair Social History Housing: House Patient Tobacco Use Status: Never used Tobacco e-Cigarette/Vaping Use: Never Used Second Hand Smoke Exposure: No service: No Current occupational status: retired Cognitive needs: No Hearing needs: No Vision needs: No Questionnaire PHQ-9 Over the last 2 weeks, how often have you been bothered by any of the following problems? 1. Little interest or pleasure in doing things: not at all 2. Feeling down, depressed, or hopeless: not at all 3. Trouble falling or staying asleep, or sleeping too much: not at all 4. Feeling tired or having little energy: not at all 5. Poor appetite or overeating: not at all 6. Feeling bad about yourself - or that you are a failure or have let yourself or your family down: not at all 7. Trouble concentrating on things, such as reading the newspaper or watching television: not at all 8. Moving or speaking so slowly that other people could have noticed. Or the opposite - being so fidgety or restless that you have been moving around a lot more than usual: not at all 9. Thoughts that you would be better off or of hurting yourself in some way: not at all Total score: 0 Depression Screening Interpretation: Negative Depression Screening Done: Yes 13194 - PHQ-9 Billing: Yes Source: Developed by Drs. Alex Fung, Luma Gan, Gideon Rolon and colleagues, with an educational elder from [employer]. Thrive Questionnaire Date Thrive assessed: 09/05/24 I am a: Patient What is your living situation today?: I have a steady place to live Within the past 12 months, did the food you bought not last and you didn't have the money to get more?: I choose not to answer this question Within the past 12 months, did you worry whether your food would run out before you got money to buy more?: I choose not to answer this question Do you have trouble paying for medicines?: No Do you have trouble getting transportation to medical appointments?: No Do you have trouble paying your heating and electricity bill?: No Do you have trouble taking care of your child, family member or friend?: No Do you have trouble with day-to-day activities such as bathing, preparing meals, shopping, managing finances, etc.?: I choose not to answer this question Are you currently unemployed and looking for a job?: No Are you interested in more education?: I choose not to answer this question Please select the resources that you would like help with: None Currently or been in a relationship where the following occur: No concerns reported THRIVE Score: 0 AUDIT C Alcohol Use Questionnaire (AUDIT-C) 1. How often do you have a drink containing alcohol?: Never Total Score: 0 Score Reviewed/Action Taken: Yes LUKASZ-7 AMB Questionnaire LUKASZ-7 Date LUKASZ - 7 assessed: 09/05/24 Feeling nervous, anxious, or on edge: 0 = Not at all Not being able to stop or control worryin = Not at all Worrying too much about different things: 0 = Not at all Trouble relaxin = Not at all Being so restless that it is hard to sit still: 0 = Not at all Becoming easily annoyed or irritable: 0 = Not at all Feeling afraid as if something awful might happen: 0 = Not at all Total LUKASZ-7 score (0-4 normal; 5-9 mild; 10-14 moderate; 15-21 severe): 0 Source: Developed by Drs. Alex Fung, Luma Gan, Gideon Rolon and colleagues, with an educational elder from [employer]. LUKASZ-7 Assessment Billing LUKASZ-7 Assessment Tool: LUKASZ-7 Assessment 71427 Review of Systems Const Details: Denies chills, Denies fatigue, Denies fever(s), Denies headache(s) and Denies weakness HEENT Denies change in vision, Denies dizziness, Denies headache(s), Denies hearing loss, Denies nasal congestion, Denies sinus pain, Denies sinus pressure and Denies sore throat Card Denies chest pain, Denies lightheadedness, Denies dyspnea and Denies other (palpitations) Resp Denies cough, Denies dyspnea and Denies wheezing GI Denies abdominal pain, Denies melena, Denies hematochezia, Denies change in bowel habits, Denies dyspepsia and Denies nausea Denies hematuria and Denies dysuria Musc Denies abnormal gait, Denies myalgias, Denies arthralgias, Denies numbness and Denies tingling Skin/Breast Denies rash, Denies unusual bruising and Denies wounds Neuro Denies abnormal gait, Denies dizziness, Denies headache(s), Denies memory loss, Denies numbness, Denies Sensory deficit (Neuro), Denies tingling and Denies weakness Psych Denies anxiety, Denies depression and Denies memory loss Endo Denies cold intolerance, Denies fatigue, Denies heat intolerance, Denies polydipsia and Denies polyuria Alex/Lymph Denies easy bleeding and Denies easy bruising Aller/Immun Denies wheezing Physical exam (Primary Care) Vital Signs: Last Vital Signs Temp 97.7 F 09/05/24 12:30 Pulse 81 09/05/24 12:30 Resp 16 09/05/24 12:30 BP 150/80 H 09/05/24 12:53 Pulse Ox 98 09/05/24 12:30 Oxygen Delivery Method Room Air 09/05/24 12:30 BMI result Body Mass Index 28.6 Tobacco/Smoking Status: Tobacco use Status Tobacco use date assessed 09/05/24 09/05/24 12:30 Patient Tobacco Use Status Never used Tobacco 09/05/24 12:25 e-Cigarette/Vaping Use Never Used 09/05/24 12:25 PHQ-9: PHQ-9 Score PHQ-9: Total score 0 09/05/24 13:10 Depression Screening Interpretation: Negative Thrive Assessment: Date of Thrive Assessment Date Thrive assessed 09/05/24 09/05/24 12:30 Currently or been in a relationship where the following occur: No concerns reported Const Other: General: no acute distress, well developed, alert and awake Nutritional Appearance: well nourished Orientation/consciousness: patient oriented x3 HENMT Head: Yes normocephalic and Yes atraumatic Ears: hearing grossly normal bilaterally and TM's normal bilaterally General nose exam: Normal external nose present and Normal nares present Mouth: Normal oral and palatal mucosa present and moist mucous membranes Teeth and gingiva: dentition normal Throat: Yes oropharynx normal Eyes Pupils: Equal, round and reactive pupils present and Pupil accommodation reflex normal EOM: EOMs intact bilaterally Neck Neck: Yes normal visual inspection, Yes no lymphadenopathy and Yes trachea midline Thyroid: Thyroid normal Carotids: no bruits Lymphatic: no lymphadenopathy noted Chest Chest palpation & inspection: normal inspection of the chest Resp Effort & Inspection: normal respiratory effort Auscultation: clear to auscultation bilaterally Cardio Rate: regular rate Rhythm: regular rhythm Heart sounds: S1 normal heart sound present, S2 normal heart sound present, no gallops, no murmurs and no rubs Bruits: no abdominal aortic bruits and no carotid bruits GI Palpation (GI): No Abdominal aortic bruit present, Soft to palpation, nontender, No hepatosplenomegaly present and No Rebound tenderness present Auscultation: normal bowel sounds General: Yes no CVA tenderness Back/Spine/Pelvis Back: no CVA tenderness Cervical Spine: cervical ROM normal and No Cervical spine tenderness Thoracic/Lumbar Spine: thoraco-lumbar ROM normal, No pain with thoraco-lumbar RO M, No thoracic spinal tenderness and No lumbar spinal tenderness Skin General: warm and dry. Normal skin color. Normal skin turgor Lesions: no lesions Rashes: no rashes Trauma: no lacerations or abrasions Wounds: no wounds Nails: normal Neuro General: patient oriented x3, gait normal and CN's II-XI intact bilaterally Cranial nerves: Yes Equal, round and reactive pupils present Cognition (Neuro): normal cognition Gait exam (Neuro): Normal gait present Motor exam (neuro): 5/5 motor strength present throughout Sensory Exam: No Sensory deficit (Neuro) Deep tendon reflexes (DTR's): Right patellar reflex intensity grade: 2+ and Left patellar reflex intensity grade: 2+ Extrem General: Yes normal to inspection, No edema and No calf tenderness Psych Appearance: grossly normal Affect: normal affect Attitude: cooperative Thought process: Normal thought process present Coding Level of Care Code Est Pt Level 3 (12703) Est Pt Prev Care >65y(52513) Diagnoses Normal physical examination, routine Z00.00 Primary hypertension I10 Hypertension type: primary hypertension Colon cancer screening Z12.11 Eye exam, routine Z01.00 Additional Codes LUKASZ-7 Assessment Billing - LUKASZ-7 Assessment Tool: LUKASZ-7 Assessment 58579 ([id number]) PHQ-9 - 09329 - PHQ-9 Billing: Yes ([id number]) Assessment & Plan Assessment & Plan (1) Normal physical examination, routine: Code(s): Z00.00 - Encounter for general adult medical examination without abnormal findings Category: Medical Plan: No significant functional limitations noted. Continue current treatment regimen. Healthy diet and routine exercise encouraged. Advised to get TSH/T4 and microalbumin/creatinine ratio lab work done before next visit. Verbalized understanding and agreed with the plan. (2) High blood pressure: Code(s): I10 - Essential (primary) hypertension Category: Medical Qualifiers: Hypertension type: primary hypertension Qualified Code(s): I10 - Essential (primary) hypertension Plan: Resting blood pressure is 150/80, above goal of less than 140/90. He has not been taking amolodipine since he ran out of the medication over a month ago. He has been taking metoprolol and spironolactone-HCTZ as prescribed. Amlodipine refilled; advised to take as prescribed. Continue current treatment regimen. Low-sodium diet encouraged. Follow-up in 1 week. Verbalized understanding and agreed with the plan. (3) Colon cancer screening: Code(s): Z12.11 - Encounter for screening for malignant neoplasm of colon Category: Medical Plan: He has never been vaccinated for for colonoscopy. He was referred [place] [facility] [place] a [place] ago. New referral made to [facility] for a colonoscopy. (4) Eye exam, routine: Code(s): Z01.00 - Encounter for examination of eyes and vision without abnormal findings Category: Medical Plan: He notes that he has never been evaluated by an eye doctor. Referred to Ophthalmology for routine eye exam. Orders: Orders TSH reflex Free T4 Today E03.8 - Other specified hypothyroidism Microalbumin, Random (w Creat) Today Z00.00 - Encounter for general adult medical examination without abnormal findings Referrals Cardiology Referral Z12.11 - Encounter for screening for malignant neoplasm of colon Gastroenterology Referral Z12.11 - Encounter for screening for malignant neoplasm of colon Ophthalmology Referral Z01.00 - Encounter for examination of eyes and vision without abnormal findings Medications: Refilled amlodipine 10 mg PO DAILY 30 days 30 tabs 3RF
[2024-09-05 12:30] VITALS: BP 152/74; PULSE 81; RESP 16; TEMP 36.5; O2SAT 98; BMI 28.6
[2024-09-05 12:53] VITALS: BP 150/80
== END 2024-09-05 13:23 | disposition home or self-care (01) ==
LOC: HO.HMCFM 12:24
PROVIDERS: PCP Nurse Practitioner Family; Visit Provider Nurse Practitioner Family
DX: Z00.00 Encounter for general adult medical examination without abnormal findings (principal); I10 Essential (primary) hypertension; Z12.11 Encounter for screening for malignant neoplasm of colon

== ENCOUNTER → 2024-09-05 12:24 | Outpatient (BNVA) | payer MEDICAID, SELFPAY | PROVIDERS: PCP Nurse Practitioner Family; Visit Provider Nurse Practitioner Family | DX: Z00.00 Encounter for general adult medical examination without abnormal findings (principal); I10 Essential (primary) hypertension; Z79.899 Other long term (current) drug therapy | CPT/HCPCS: 96127; 99212; 99397 ==

== ENCOUNTER 2024-09-05 13:27 | Outpatient (REF) | payer MEDICAID, SELFPAY ==
[2024-09-05 18:21] LABS: TSH reflex Free T4 3.38 uIU/mL (0.32-4.0)
== END 2024-09-05 13:28 | disposition home or self-care (01) ==
LOC: HO.WFDLDS 13:27
PROVIDERS: Visit Provider Nurse Practitioner Family
DX: E03.8 Other specified hypothyroidism (principal)
CPT/HCPCS: 36415; 84443

== ENCOUNTER 2024-09-06 11:19 | Outpatient (REF) | payer MEDICAID, SELFPAY ==
[2024-09-06 12:08] LABS: Creatinine Urine 128.98 mg/dL; Microalbumin Urine < 5.0 mg/L
== END 2024-09-06 11:20 | disposition home or self-care (01) ==
LOC: HO.LNP 11:19
PROVIDERS: Visit Provider Nurse Practitioner Family
DX: Z00.00 Encounter for general adult medical examination without abnormal findings (principal)
CPT/HCPCS: 82043; 82570

== ENCOUNTER 2024-11-13 08:35 | Outpatient (REF) | payer MEDICAID, SELFPAY ==
[2024-11-13 13:49] LABS: Anion Gap 11 (12-20); Blood Urea Nitrogen 15 mg/dL (9-16); Calcium 9.4 mg/dL (8.4-10.2); Carbon Dioxide 26 mmol/L (22-29); Chloride 105 mmol/L (96-108); Estimated Glomerular Filt Rate 52; Potassium 4.1 mmol/L (3.3-5.1); Sodium 138 mmol/L (135-145)
== END 2024-11-13 08:36 | disposition home or self-care (01) ==
LOC: HO.WFDLDS 08:35
PROVIDERS: Visit Provider Internal Medicine Hypertension Specialist
DX: E26.09 Other primary hyperaldosteronism (principal)
CPT/HCPCS: 36415; 80048

== ENCOUNTER 2024-12-14 09:21 | Outpatient (AMB) | payer MEDICAID, SELFPAY ==
--- NOTE | 2024-12-14 09:25 | MHC.OFFVIS ---
Vital Signs 12/14/24 09:26 Height 5 ft 7 in Weight 185 lb BMI 29.0 BP 148/68 H Blood Pressure Location Rt brachial Position Sitting Pulse 98 Pulse Source Pulse Oximeter Pulse Oximetry (%) 98 Oxygen Delivery Method Room Air Intake Visit Reasons: Colonoscopy Screening Intake Note: Patient new consult for pre Colonoscopy screening. Patient cc: Pt denies any GI sx or concerns at this time. Cord Tire Builder Required: Yes Cord Tire Builder Services: Cord T[employer] Builder Present Cord Tire Builder Name: [id number] Canales Information Interpreted: clinical only Accompanied by: Son Allergies No Known Allergies Allergy (Verified 12/14/24 09:25) Medication List - Last Reconciled 12/14/24 by Cathleen Mccoy CNP amlodipine 10 mg PO DAILY 30 days metoprolol succinate ER (Toprol XL) 100 mg PO DAILY spironolacton-hydrochlorothiaz 25-25 mg 1 tab PO DAILY HPI HPI Colonoscopy Screening: Details: Patient is a 78-year-old male with PMH of hypothyroidism, hypertension and CKD. Referred by PCP for pre colonoscopy screening. Patient is accompanied by his son. Patient reports mild constipation, characterized by daily bowel movements with normal-appearing stool ( type 3 on [place] stool chart) that is hard to pass and requires straining. Denies blood in stool, abdominal pain, nausea, vomiting, diarrhea, or changes in appetite. Weight is reported as stable, with no unexplained weight loss. No history of heartburn or dysphagia. Prior colonoscopy performed in [facility] approximately seven years ago; results unknown, and no recollection of polyp detection. No family history of colon or stomach cancer, and no personal history of malignancy. Hypertension is the only comorbidity, managed with medication. No other GI or systemic complaints reported. Social hx: -denies ETOH use -denies recreational drug use -non-smoker - family hx as below -denies personal hx of CA PFSH Medical History (Updated 12/14/24 @ 10:40 by Cathleen Mccoy CNP) Constipation No pertinent family history Prostate troubles Surgical History (Updated 12/14/24 @ 09:38 by DAMON Canales) H/O colonoscopy History of hernia repair Family History (Updated 12/14/24 @ 09:58 by Cathleen Mccoy CNP) Unknown No significant family history Social History Housing: House Patient Tobacco Use Status: Never used Tobacco e-Cigarette/Vaping Use: Never Used Second Hand Smoke Exposure: No service: No Current occupational status: retired Cognitive needs: No Hearing needs: No Vision needs: No Review of Systems Const Reports as per [facility] ENT Reports as per [facility] Card Reports as per HPI Resp Reports as per HPI GI Reports as per [facility] Reports as per HPI Physical Exam Const General: healthy appearing, no acute distress and well developed Nutritional Appearance: average body habitus Orientation/consciousness: patient oriented x3 HEENT Head: Yes normal to inspection, Yes normocephalic and Yes atraumatic Face and sinus: Yes normal facial exam Eyes General: appearance normal, both eyes and all related structures Neck Neck: Yes normal visual inspection Resp Effort & Inspection: normal respiratory effort, able to speak in complete sentences, no tracheal deviation and symmetric chest movement Cardio Jugular venous distension: no JVD Neuro General: patient oriented x3 Gait exam (Neuro): Normal gait present Psych Appearance: grossly normal Mental Status: mental status grossly normal Speech and movement: Normal speech and movement present Affect: normal affect Attitude: cooperative Thought process: Normal thought process present Thought content: Normal thought content present Insight: Good insight present (Psych) Judgement: Good judgement present (Psych) Assessment & Plan Assessment & Plan (1) Colon cancer screening: Comment: Prior colonoscopy performed in [facility] approximately seven years ago (2018) results unknown, and no recollection of polyp detection. Code(s): Z12.11 - Encounter for screening for malignant neoplasm of colon Category: Medical Plan: Patient age 75+; standard CRC screening guidelines recommend routine screening for average-risk adults ages 45?75. After age 75, screening should be individualized based on overall health, prior screening history, and patient preference. Patient prefers stool-based testing over colonoscopy due to age and absence of alarm symptoms. Additional Testing: Cologuard stool test ordered. Patient counseled on limitations of stool testing vs. colonoscopy; colonoscopy indicated if stool test positive. Patient provided verbal confirmation of understanding this risk. Medication Management: None specific. Lifestyle Recommendations: Monitor for new GI symptoms. Follow-Up: Await stool test results; colonoscopy only if indicated by positive result. (2) Constipation: Code(s): K59.00 - Constipation, unspecified Category: Medical Qualifiers: Constipation type: unspecified constipation type Qualified Code(s): K59.00 - Constipation, unspecified Plan: Mild. Hard stool, straining, no red flag GI symptoms. Additional Testing: None indicated. Medication Management: Stool softener 1 tab PO HS. Lifestyle Recommendations: Increase dietary fiber (fruits, vegetables, beans, nuts); maintain adequate hydration. Follow-Up: Monitor symptoms; follow up with PCP if symptoms worsen. Plan Follow-up after cologuard as warranted or sooner if needed Time: I spent a total of 45 minutes on the date of encounter which includes: Preparing to see the patient (reviewed previous documentation, test results and medical history) Performing a medically appropriate exam and/or evaluation Ordering medications, tests, and procedures Documenting clinical information in the health record Orders: Orders AMB Cologuard Today Z12.11 - Encounter for screening for malignant neoplasm of colon Medications: New docusate sodium Take one tablet at bedtime 100 mg PO BEDTIME 90 caps 1RF constipation Coding Level of Care Code New Pt New Pt Level 4 (75462) Patient Type New Diagnoses Colon cancer screening Z12.11 Constipation, unspecified constipation type K59.00 Constipation type: unspecified constipation type
[2024-12-14 09:26] VITALS: BP 148/68; PULSE 98; O2SAT 98; BMI 29.0
== END 2024-12-14 10:11 | disposition home or self-care (01) ==
LOC: HO.HGI 09:22
PROVIDERS: PCP Nurse Practitioner Family; Visit Provider Nurse Practitioner Family
DX: Z01.818 Encounter for other preprocedural examination (principal); Z12.11 Encounter for screening for malignant neoplasm of colon; K59.00 Constipation, unspecified
CPT/HCPCS: 99204

== ENCOUNTER → 2024-12-14 09:21 | Outpatient (BNVA) | payer MEDICAID, SELFPAY | PROVIDERS: PCP Nurse Practitioner Family; Visit Provider Nurse Practitioner Family | DX: Z01.818 Encounter for other preprocedural examination (principal); K59.00 Constipation, unspecified | CPT/HCPCS: 99212 ==

== ENCOUNTER 2024-12-15 12:49 | Outpatient (AMB) | payer MEDICAID, SELFPAY ==
--- NOTE | 2024-12-15 12:57 | MHC.PC.OV ---
Vital Signs 12/15/24 13:10 12/15/24 13:26 Height 5 ft 7 in Weight 186 lb BMI 29.1 BP 132/68 130/64 Blood Pressure Location Rt brachial Lt brachial Position Sitting Sitting Respiration 16 Pulse 83 Pulse Source Pulse Oximeter Temp 97.5 F Temp Source Temporal Artery Scan Pulse Oximetry (%) 98 Oxygen Delivery Method Room Air Intake Visit Reasons: fu htn Intake Note: Nery presents in the office today to follow up to hypertension. 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 Allergies No Known Allergies Allergy (Verified 12/15/24 13:22) Medication List - Last Reconciled 12/15/24 by Mark Rodriguez CNP amlodipine 10 mg PO DAILY 30 days docusate sodium 100 mg PO BEDTIME metoprolol succinate ER (Toprol XL) 100 mg PO DAILY spironolacton-hydrochlorothiaz 25-25 mg 1 tab PO DAILY Tobacco use date assessed: 12/15/24 Fall risk assessment: No Falls in past year Last assessed Fall Risk: 12/15/24 Dental Screening Dental Screen Date: 12/15/24 Did you have a dental visit in the last 12 months?: Yes Did you have a dental problem in the last 6 months where you did not have access to dental care?: No Was dental information given to patient?: Patient has dentist HPI HPI Comments History of Present Illness Details 79-year-old Creole speaking male, accompanied by his son, presents for hypertension follow-up. He admits to taking his medications as prescribed without adverse reactions. He notes that he has been making healthy lifestyle changes. He offers no complaints and denies acute symptoms at this time. Interpretation by the patient's son per patient's preference. [facility] Medical History (Updated 12/14/24 @ 10:40 by Cathleen Mccoy CNP) Constipation No pertinent family history Prostate troubles Surgical History H/O colonoscopy History of hernia repair Family History Unknown No significant family history Social History (Updated 12/15/24 @ 13:09 by Melonie Bishop MA) Housing: House Alcohol intake: never Patient Tobacco Use Status: Never used Tobacco e-Cigarette/Vaping Use: Never Used Second Hand Smoke Exposure: No service: No Current occupational status: retired Cognitive needs: No Hearing needs: No Vision needs: No Questionnaire Thrive Questionnaire Date Thrive assessed: 09/05/24 I am a: Patient What is your living situation today?: I have a steady place to live Within the past 12 months, did the food you bought not last and you didn't have the money to get more?: I choose not to answer this question Within the past 12 months, did you worry whether your food would run out before you got money to buy more?: I choose not to answer this question Do you have trouble paying for medicines?: No Do you have trouble getting transportation to medical appointments?: No Do you have trouble paying your heating and electricity bill?: No Do you have trouble taking care of your child, family member or friend?: No Do you have trouble with day-to-day activities such as bathing, preparing meals, shopping, managing finances, etc.?: I choose not to answer this question Are you currently unemployed and looking for a job?: No Are you interested in more education?: I choose not to answer this question Please select the resources that you would like help with: None Currently or been in a relationship where the following occur: No concerns reported THRIVE Score: 0 AUDIT C Alcohol Use Questionnaire (AUDIT-C) 2. How many drinks containing alcohol do you have on a typical day when you are drinking?: 1 or 2 3. How often do you have six or more drinks on one occasion?: Never Total Score: 0 LUKASZ-7 AMB Questionnaire LUKASZ-7 Date LUKASZ - 7 assessed: 09/05/24 Source: Developed by Drs. Alex Fung, Luma Gan, Gideon Rolon and colleagues, with an educational elder from [employer]. Review of Systems Const Details: Const Denies chills, Denies fatigue, Denies fever(s), Denies headache(s) and Denies weakness ENT Denies dizziness and Denies headache(s) Card Denies chest pain, Denies lightheadedness, Denies dyspnea and Denies other (Palpitations) Resp Denies cough, Denies dyspnea, Denies wheezing and Denies other ( shortness of breath) GI Denies abdominal pain, Denies melena, Denies hematochezia, Denies change in bowel habits, Denies dyspepsia and Denies nausea Denies hematuria and Denies dysuria Musc Denies abnormal gait, Denies myalgias, Denies arthralgias, Denies numbness and Denies tingling Skin/Breast Denies rash, Denies unusual bruising and Denies wounds Neuro Denies abnormal gait, Denies dizziness, Denies headache(s), Denies memory loss, Denies numbness, Denies Sensory deficit (Neuro), Denies tingling and Denies weakness Psych Denies anxiety, Denies depression, Denies memory loss Endo Denies cold intolerance, Denies fatigue, Denies heat intolerance, Denies polydipsia and Denies polyuria Aller/Immun Denies wheezing Physical exam (Primary Care) Vital Signs: Last Vital Signs Temp 97.5 F 12/15/24 13:10 Pulse 83 12/15/24 13:10 Resp 16 12/15/24 13:10 BP 132/68 12/15/24 13:10 Pulse Ox 98 12/15/24 13:10 Oxygen Delivery Method Room Air 12/15/24 13:10 BMI result Body Mass Index 29.1 Tobacco/Smoking Status: Tobacco use Status Tobacco use date assessed 12/15/24 12/15/24 13:12 Patient Tobacco Use Status Never used Tobacco 12/15/24 13:09 e-Cigarette/Vaping Use Never Used 12/15/24 13:09 Thrive Assessment: Date of Thrive Assessment Date Thrive assessed 09/05/24 12/15/24 12:59 Currently or been in a relationship where the following occur: No concerns reported Const Other: General: no acute distress and well developed Nutritional Appearance: well nourished Orientation/consciousness: patient oriented x3 [facility] Head: Yes normocephalic and Yes atraumatic Eyes General: appearance normal, both eyes and all related structures Pupils: Equal, round and reactive pupils present EOM: EOMs intact bilaterally Resp Effort & Inspection: normal respiratory effort Auscultation: clear to auscultation bilaterally Cardio Rate: regular rate Rhythm: regular rhythm Heart sounds: S1 normal heart sound present, S2 normal heart sound present, no gallops, no murmurs and no rubs GI Palpation (GI): No Abdominal aortic bruit present, Soft to palpation, nontender, No hepatosplenomegaly present and No Rebound tenderness present Auscultation: normal bowel sounds General: Yes no CVA tenderness Back/Spine/Pelvis Back: no CVA tenderness Cervical Spine: cervical ROM normal and No Cervical spine tenderness Thoracic/Lumbar Spine: thoraco-lumbar ROM normal, No pain with thoraco-lumbar ROM, No thoracic spinal tenderness and No lumbar spinal tenderness Extrem General: Yes normal to inspection, No edema and No calf tenderness Skin General: warm and dry. Normal skin color. Normal skin turgor Neuro General: patient oriented x3, gait normal and no focal neuro deficit Cranial nerves: Yes Equal, round and reactive pupils present Cognition (Neuro): normal cognition Gait exam (Neuro): Normal gait present Sensory Exam: No Sensory deficit (Neuro) Psych Appearance: grossly normal Affect: normal affect Attitude: cooperative Thought process: Normal thought process present Coding Level of Care Code Est Pt Level 3 (03256) Diagnoses Primary hypertension I10 Hypertension type: primary hypertension Assessment & Plan Assessment & Plan (1) High blood pressure: Code(s): I10 - Essential (primary) hypertension Category: Medical Qualifiers: Hypertension type: primary hypertension Qualified Code(s): I10 - Essential (primary) hypertension Plan: Resting blood pressure is 130/64, within goal of less than 140/90. Continue current treatment regimen. Low-sodium diet encouraged. Follow-up in 3 months or sooner with symptoms or concerns. Verbalized understanding and agreed with the plan.
[2024-12-15 13:10] VITALS: BP 132/68; PULSE 83; RESP 16; TEMP 36.4; O2SAT 98; BMI 29.1
[2024-12-15 13:26] VITALS: BP 130/64
== END 2024-12-15 13:27 | disposition home or self-care (01) ==
LOC: HO.HMCFM 12:49
PROVIDERS: PCP Nurse Practitioner Family; Visit Provider Nurse Practitioner Family
DX: I10 Essential (primary) hypertension (principal)

== ENCOUNTER → 2024-12-15 12:49 | Outpatient (BNVA) | payer MEDICAID, SELFPAY | PROVIDERS: PCP Nurse Practitioner Family; Visit Provider Nurse Practitioner Family | DX: I10 Essential (primary) hypertension (principal) | CPT/HCPCS: 99212 ==

== ENCOUNTER 2025-03-19 11:40 | Outpatient (AMB) | payer MEDICAID, SELFPAY ==
--- NOTE | 2025-03-19 11:43 | MHC.PC.OV ---
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 Intercept Controller Supervisor Name: pt refused is w/ son Information Interpreted: non-clinical & clinical Accompanied by: Son Allergies No Known Allergies Allergy (Verified 03/19/25 11:59) Medication List - Last Reconciled 03/19/25 by Mark Rodriguez CNP amlodipine 10 mg PO DAILY 30 days docusate sodium 100 mg PO BEDTIME metoprolol succinate ER (Toprol XL) 100 mg PO DAILY spironolacton-hydrochlorothiaz 25-25 mg 1 tab PO DAILY Tobacco use date assessed: 03/19/25 Fall risk assessment: No Falls in past year Last assessed Fall Risk: 03/19/25 Dental Screening Dental Screen Date: 03/19/25 Did you have a dental visit in the last 12 months?: Yes Did you have a dental problem in the last 6 months where you did not have access to dental care?: No Was dental information given to patient?: Patient has dentist HPI HPI Comments History of Present Illness Details 79-year-old Creole speaking male, accompanied by his son, presents for hypertension follow-up. He admits to taking his medications as prescribed without adverse reactions. He notes that he has been making healthy lifestyle changes. He offers no complaints and denies acute symptoms at this time. Interpretation by the patient's son per patient's preference. [facility] Medical History (Updated 03/19/25 @ 11:58 by Mark Rodriguez CNP) Hypotension Constipation No pertinent family history Prostate troubles Surgical History H/O colonoscopy History of hernia repair Family History Unknown No significant family history Social History (Updated 12/15/24 @ 13:09 by Melonie Bishop MA) Housing: House Alcohol intake: never Patient Tobacco Use Status: Never used Tobacco e-Cigarette/Vaping Use: Never Used Second Hand Smoke Exposure: No service: No Current occupational status: retired Cognitive needs: No Hearing needs: No Vision needs: No Questionnaire Thrive Questionnaire Date Thrive assessed: 09/05/24 I am a: Patient What is your living situation today?: I have a steady place to live Within the past 12 months, did the food you bought not last and you didn't have the money to get more?: I choose not to answer this question Within the past 12 months, did you worry whether your food would run out before you got money to buy more?: I choose not to answer this question Do you have trouble paying for medicines?: No Do you have trouble getting transportation to medical appointments?: No Do you have trouble paying your heating and electricity bill?: No Do you have trouble taking care of your child, family member or friend?: No Do you have trouble with day-to-day activities such as bathing, preparing meals, shopping, managing finances, etc.?: I choose not to answer this question Are you currently unemployed and looking for a job?: No Are you interested in more education?: I choose not to answer this question Please select the resources that you would like help with: None Currently or been in a relationship where the following occur: No concerns reported THRIVE Score: 0 LUKASZ-7 AMB Questionnaire LUKASZ-7 Date LUKASZ - 7 assessed: 09/05/24 Source: Developed by Drs. Alex Fung, Luma Gan, Gideon Rolon and colleagues, with an educational elder from [employer]. Review of Systems Const Details: Const Denies chills, Denies fatigue, Denies fever(s), Denies headache(s) and Denies weakness ENT Denies dizziness and Denies headache(s) Card Denies chest pain, Denies lightheadedness, Denies dyspnea and Denies other (Palpitations) Resp Denies cough, Denies dyspnea, Denies wheezing and Denies other ( shortness of breath) GI Denies abdominal pain, Denies melena, Denies hematochezia, Denies change in bowel habits, Denies dyspepsia and Denies nausea Denies hematuria and Denies dysuria Musc Denies abnormal gait, Denies myalgias, Denies arthralgias, Denies numbness and Denies tingling Skin/Breast Denies rash, Denies unusual bruising and Denies wounds Neuro Denies abnormal gait, Denies dizziness, Denies headache(s), Denies memory loss, Denies numbness, Denies Sensory deficit (Neuro), Denies tingling and Denies weakness Psych Denies anxiety, Denies depression, Denies memory loss Endo Denies cold intolerance, Denies fatigue, Denies heat intolerance, Denies polydipsia and Denies polyuria Aller/Immun Denies wheezing Physical exam (Primary Care) Vital Signs: Last Vital Signs Temp 98.0 F 03/19/25 11:50 Pulse 89 03/19/25 11:50 Resp 16 03/19/25 11:50 BP 156/70 H 03/19/25 11:50 Pulse Ox 96 03/19/25 11:50 Oxygen Delivery Method Room Air 03/19/25 11:50 BMI result Body Mass Index 29.8 Tobacco/Smoking Status: Tobacco use Status Tobacco use date assessed 03/19/25 03/19/25 11:54 Patient Tobacco Use Status Never used Tobacco 03/19/25 11:43 e-Cigarette/Vaping Use Never Used 03/19/25 11:43 Thrive Assessment: Date of Thrive Assessment Date Thrive assessed 09/05/24 03/19/25 11:43 Currently or been in a relationship where the following occur: No concerns reported Const Other: General: no acute distress and well developed Nutritional Appearance: well nourished Orientation/consciousness: patient oriented x3 HENMT Head: Yes normocephalic and Yes atraumatic Eyes General: appearance normal, both eyes and all related structures Pupils: Equal, round and reactive pupils present EOM: EOMs intact bilaterally Resp Effort & Inspection: normal respiratory effort Auscultation: clear to auscultation bilaterally Cardio Rate: regular rate Rhythm: regular rhythm Heart sounds: S1 normal heart sound present, S2 normal heart sound present, no gallops, no murmurs and no rubs Extrem General: Yes normal to inspection, No edema and No calf tenderness Skin General: warm and dry. Normal skin color. Normal skin turgor Neuro General: patient oriented x3, gait normal and no focal neuro deficit Cranial nerves: Yes Equal, round and reactive pupils present Cognition (Neuro): normal cognition Gait exam (Neuro): Normal gait present Sensory Exam: No Sensory deficit (Neuro) Psych Appearance: grossly normal Affect: normal affect Attitude: cooperative Thought process: Normal thought process present Coding Level of Care Code Est Pt Level 3 (40864) Diagnoses Primary hypertension I10 Hypertension type: primary hypertension Assessment & Plan Assessment & Plan (1) High blood pressure: Code(s): I10 - Essential (primary) hypertension Category: Medical Qualifiers: Hypertension type: primary hypertension Qualified Code(s): I10 - Essential (primary) hypertension Plan: Resting blood pressure is 116/60, within goal of less than 140/90. Continue current treatment regimen. Low-sodium diet encouraged. Follow-up for transfer of care with a new provider in 2 months. Return sooner with symptoms or concerns. Verbalized understanding and agreed with the plan.
[2025-03-19 11:50] VITALS: BP 156/70; PULSE 89; RESP 16; TEMP 36.7; O2SAT 96; BMI 29.8
[2025-03-19 12:04] VITALS: BP 116/60
== END 2025-03-19 12:12 | disposition home or self-care (01) ==
LOC: HO.HMCFM 11:41
PROVIDERS: PCP Nurse Practitioner Family; Visit Provider Nurse Practitioner Family
DX: I10 Essential (primary) hypertension (principal)

== ENCOUNTER → 2025-03-19 11:40 | Outpatient (BNVA) | payer MEDICAID, SELFPAY | PROVIDERS: PCP Nurse Practitioner Family; Visit Provider Nurse Practitioner Family | DX: I10 Essential (primary) hypertension (principal) | CPT/HCPCS: 99212 ==